=== PATIENT | female | born 1985 | race African-American/Black ===

== ENCOUNTER 2016-08-12 19:38 | Emergency (ER) | payer MEDICAID, OTHER ==
[~2016-08-12] VITALS: Ht 175.3 cm; Wt 81.0 kg
[2016-08-12 22:47] LABS: BASOPHILS % 1.1 % (0.0-2.0); EOSINOPHILS % 3.6 % (0.0-5.0); HEMATOCRIT. 36.3 % (36.0-48.0); HEMOGLOBIN. 11.8 g/dL (12.0-16.0); LYMPHOCYTES % 49.9 % (20.0-50.0); MEAN CORPUSCULAR HEMOGLOBIN 27.2 pg (28.0-32.0); MEAN CORPUSCULAR HGB CONC 32.6 g/dL (31.0-37.0); MEAN CORPUSCULAR VOLUME 83.4 fL (81.0-99.0); MEAN PLATELET VOLUME 8.4 fl (7.4-10.4); MONOCYTES % 7.9 % (2.0-8.0); NEUTROPHILS % 37.5 % (40.0-76.0); PLATELET 232 x1000/uL (130-400); RED BLOOD CELL COUNT 4.36 mill/uL (4.2-5.4); RED CELL DISTRIBUTION WIDTH 14.4 % (11.6-14.6)
[2016-08-12 22:52] LABS: CALCIUM 8.2 mg/dL (8.5-10.1); CHLORIDE 106 mEq/L (98-107); INDEX HEMOLYSI 1 (1-3); INDEX ICTERIC 1 (1-4); INDEX LIPEMIC 1 (1-3)
[2016-08-12 22:58] LABS: ANION GAP 15; CARBON DIOXIDE 25 mEq/L (21-32); UREA NITROGEN BLOOD 6 mg/dL (7-21); eGFR > 60 mL/min (>60)
[2016-08-12 23:01] LABS: B-HCG QUANTITATIVE 483 mIU/mL (<3)
[2016-08-13 00:30] VITALS: BP 103/75
[2016-08-13] MEDS ORDERED: ONDANSETRON HCL 4MG TABLET PO ONE (00:30)
== END 2016-08-13 03:13 | disposition home or self-care (01) ==
LOC: ER 19:39
DX: O03.4 Incomplete spontaneous abortion without complication (principal); Z3A.08 8 weeks gestation of pregnancy
CPT/HCPCS: 36415; 76801; 80048; 81025; 84702; 85025; 86850; 86870; 86900; 86901; 99285; Q0162

== ENCOUNTER 2018-10-05 09:18 | Inpatient (IN) | payer MEDICAID ==
[~2018-10-05] VITALS: Ht 175.3 cm; Wt 93.4 kg
[2018-10-05] MEDS ORDERED: SODIUM CHLORIDE 0.9% 1,000 ML IV ONE (09:48)
[2018-10-05] MEDS ORDERED: LEVETIRACETAM 1000MG/100ML 100 ML IV ONE (10:00)
[2018-10-05 10:13] LABS: BASOPHILS % 0.8 % (0.0-2.0); EOSINOPHILS % 0.8 % (0.0-5.0); HEMATOCRIT. 40.6 % (36.0-48.0); HEMOGLOBIN. 13.1 g/dL (12.0-16.0); LYMPHOCYTES % 18.5 % (20.0-50.0); MEAN CORPUSCULAR HEMOGLOBIN 27.3 pg (28.0-32.0); MEAN CORPUSCULAR VOLUME 84.1 fL (81.0-99.0); MEAN PLATELET VOLUME 9.3 fl (7.4-10.4); NEUTROPHILS % 73.9 % (40.0-76.0); PLATELET 224 x1000/uL (130-400); RED BLOOD CELL COUNT 4.82 mill/uL (4.2-5.4); RED CELL DISTRIBUTION WIDTH 14.9 % (11.6-14.6)
[2018-10-05 10:19] LABS: CHLORIDE 107 mEq/L (98-107)
[2018-10-05 10:24] LABS: HCG SCREEN NEGATIVE
[2018-10-05 10:25] LABS: ETHANOL BLOOD < 10 mg/dL
[2018-10-05 10:29] LABS: CREATINE KINASE 356 IU/L (26-192)
[2018-10-05 10:29] LABS: CLARITY URINE CLEAR (CLEAR); COLOR URINE YELLOW (YELLOW); KETONES URINE NEGATIVE (NEGATIVE); LEUKOCYTE ESTERASE URINE NEGATIVE (NEGATIVE); NITRITE URINE NEGATIVE (NEGATIVE); OCCULT BLOOD URINE NEGATIVE (NEGATIVE); PROTEIN URINE NEGATIVE (NEGATIVE); SPECIFIC GRAVITY URINE 1.024 (1.005-1.030); UROBILINOGEN URINE 0.2 E.U./dL (0.2-1.0)
[2018-10-05 10:45] LABS: *BENZODIAZEPINES SCREEN URINE NEGATIVE (NEGATIVE); *COCAINE SCREEN URINE NEGATIVE (NEGATIVE); METHADONE URINE SCREEN NEGATIVE (NEGATIVE); OPIATES URINE SCREEN NEGATIVE (NEGATIVE); PHENCYCLIDINE URINE SCREEN NEGATIVE (NEGATIVE)
[2018-10-05 10:46] LABS: *AMPHETAMINES SCREEN URINE NEGATIVE (NEGATIVE); *BARBITURATES SCREEN URINE NEGATIVE (NEGATIVE)
[2018-10-05 10:57] LABS: CANNABINOID URINE SCREEN PRESUMTIVE POSITIVE (NEGATIVE)
[2018-10-05] MEDS ORDERED: KETOROLAC 30MG/ML VIAL IV ONE (12:00)
[2018-10-05] MEDS ORDERED: IPRATROPIUM/ALBUTEROL 0.5-3(2.5)MG/3ML NEB INH PRN (12:45)
[2018-10-05] MEDS ORDERED: LORAZEPAM 2MG/ML CPJ IV PRN (12:45)
[2018-10-05] MEDS ORDERED: HYDROCODONE/ACETAMINOPHEN 5/325MG TABLET PO PRN (12:45)
[2018-10-05] MEDS ORDERED: DIPHENHYDRAMINE 50MG/ML VIAL IV PRN (12:45)
[2018-10-05] MEDS ORDERED: ACETAMINOPHEN 650MG/20.3ML UDC GT PRN (12:45)
[2018-10-05] MEDS ORDERED: ACETAMINOPHEN 325MG TABLET PO PRN (12:45)
[2018-10-05] MEDS ORDERED: CLONIDINE 0.1MG TABLET PO PRN (12:45)
[2018-10-05] MEDS ORDERED: ONDANSETRON HCL 4MG/2ML INJ IV PRN (12:45)
[2018-10-05] MEDS ORDERED: GUAIFENESIN 200MG/10ML SUGAR FREE UDC PO PRN (12:45)
[2018-10-05] MEDS ORDERED: MAGNESIUM/ALUMINUM HYDROXIDE/SIMETHICONE 30ML UDC PO PRN (12:45)
[2018-10-05] MEDS ORDERED: DOCUSATE SODIUM 100MG CAPSULE PO PRN (12:45)
[2018-10-05] MEDS ORDERED: ACETAMINOPHEN 650MG SUPP PR PRN (12:45)
[2018-10-05] MEDS ORDERED: NA PHOS,M-B/NA PHOS,DI-BA ENEMA 118ML PR PRN (12:45)
[2018-10-05 15:00] VITALS: BP 119/75
[2018-10-05 15:30] VITALS: BP 119/75
[2018-10-05] MEDS ORDERED: LEVE1000 PO (16:17)
[2018-10-05] MEDS ORDERED: ENOXAPARIN 40MG/0.4ML SYR SUBCUT SCH (17:00)
[2018-10-05] MEDS: SODIUM CHLORIDE 0.45% 1,000 ML IV SCH (17:01)
[2018-10-05 20:00] VITALS: BP 107/70
[2018-10-05] MEDS ORDERED: LEVETIRACETAM 500MG/5ML CUP PO SCH (21:00)
[2018-10-05] MEDS: LEVETIRACETAM 500MG/5ML CUP PO SCH (21:27)
[2018-10-05] MEDS: SODIUM CHLORIDE 0.9% INJ 3ML FLUSH IVF SCH (21:30)
[2018-10-06] MEDS: SODIUM CHLORIDE 0.45% 1,000 ML IV SCH (03:06)
[2018-10-06] MEDS: SODIUM CHLORIDE 0.9% INJ 3ML FLUSH IVF SCH (06:32)
[2018-10-06 08:00] VITALS: BP 105/72
[2018-10-06] MEDS: LEVETIRACETAM 500MG/5ML CUP PO SCH (08:28)
[2018-10-06 09:19] LABS: BASOPHILS % 1.1 % (0.0-2.0); EOSINOPHILS % 2.3 % (0.0-5.0); HEMATOCRIT. 35.6 % (36.0-48.0); HEMOGLOBIN. 11.6 g/dL (12.0-16.0); LYMPHOCYTES % 43.8 % (20.0-50.0); MEAN CORPUSCULAR HEMOGLOBIN 27.3 pg (28.0-32.0); MEAN PLATELET VOLUME 9.5 fl (7.4-10.4); MONOCYTES % 10.7 % (2.0-8.0); NEUTROPHILS % 42.1 % (40.0-76.0); PLATELET 187 x1000/uL (130-400); RED BLOOD CELL COUNT 4.23 mill/uL (4.2-5.4); RED CELL DISTRIBUTION WIDTH 14.7 % (11.6-14.6)
[2018-10-06 09:28] LABS: CHLORIDE 109 mEq/L (98-107)
[2018-10-06 09:36] LABS: LDL CHOLESTEROL 79 mg/dL (5-100)
[2018-10-06 09:37] LABS: HDL CHOLESTEROL 62 mg/dL (40-59)
== END 2018-10-06 12:57 | disposition left against medical advice (07) | DRG 53 ==
LOC: ER 09:18 → 6WST 12:14 → EDBEDREQ 12:16 → ENRESERV 13:40
PROVIDERS: ADMIT Family Medicine; ATTEND Family Medicine
DX: G40.909 Epilepsy, unspecified, not intractable, without status epilepticus (principal); M62.82 Rhabdomyolysis; F12.90 Cannabis use, unspecified, uncomplicated; Z53.21 Procedure and treatment not carried out due to patient leaving prior to being seen by health care provider; F17.200 Nicotine dependence, unspecified, uncomplicated; R32 Unspecified urinary incontinence; Z91.19 Patient's noncompliance with other medical treatment and regimen
CPT/HCPCS: 36415; 71045; 80048; 80061; 80305; 80320; 82550; 84703; 96361; 96365; 96372; 96375; 99291; J1650; J1885; J1953; J7030; G0480

== ENCOUNTER 2018-11-26 20:01 | Emergency (ER) | payer MEDICAID ==
[~2018-11-26] VITALS: Ht 177.8 cm; Wt 81.0 kg
[~2018-11-26 20:01] MED LIST: LEVE1000 PO
[2018-11-26 20:16] VITALS: BP 108/73
== END 2018-11-26 22:18 | disposition left against medical advice (07) ==
LOC: ER 20:01
DX: R56.9 Unspecified convulsions (principal); Z53.21 Procedure and treatment not carried out due to patient leaving prior to being seen by health care provider

== ENCOUNTER 2018-11-30 13:08 | Emergency (ER) | payer MEDICAID ==
[~2018-11-30] VITALS: Ht 167.6 cm; Wt 61.0 kg
[2018-11-30 13:13] VITALS: BP 111/68
== END 2018-11-30 13:30 | disposition left against medical advice (07) ==
LOC: ER 13:08
DX: Z53.21 Procedure and treatment not carried out due to patient leaving prior to being seen by health care provider (principal)

== ENCOUNTER 2018-12-10 10:30 | Emergency (ER) | payer MEDICAID ==
[~2018-12-10] VITALS: Ht 175.3 cm; Wt 78.0 kg
[2018-12-10] MEDS ORDERED: KETOROLAC 30MG/ML VIAL IV STA (11:43)
[2018-12-10] MEDS ORDERED: LEVETIRACETAM 500MG PREMIX 100 ML IV ONE (11:45)
[2018-12-10 11:59] LABS: BASOPHILS % 0.9 % (0.0-2.0); EOSINOPHILS % 2.6 % (0.0-5.0); HEMATOCRIT. 39.9 % (36.0-48.0); LYMPHOCYTES % 28.6 % (20.0-50.0); MEAN CORPUSCULAR VOLUME 85.8 fL (81.0-99.0); MEAN PLATELET VOLUME 9.3 fl (7.4-10.4); MONOCYTES % 10.5 % (2.0-8.0); NEUTROPHILS % 57.4 % (40.0-76.0); PLATELET 192 x1000/uL (130-400); RED BLOOD CELL COUNT 4.65 mill/uL (4.2-5.4); RED CELL DISTRIBUTION WIDTH 14.8 % (11.6-14.6)
[2018-12-10 12:05] LABS: CHLORIDE 106 mEq/L (98-107)
[2018-12-10 12:10] LABS: ETHANOL BLOOD < 10 mg/dL
[2018-12-10 12:40] LABS: CLARITY URINE CLEAR (CLEAR); COLOR URINE YELLOW (YELLOW); KETONES URINE NEGATIVE (NEGATIVE); LEUKOCYTE ESTERASE URINE NEGATIVE (NEGATIVE); NITRITE URINE NEGATIVE (NEGATIVE); OCCULT BLOOD URINE 1+ (NEGATIVE); PROTEIN URINE TRACE (NEGATIVE); SPECIFIC GRAVITY URINE 1.016 (1.005-1.030); UROBILINOGEN URINE 0.2 E.U./dL (0.2-1.0)
[2018-12-10 13:00] LABS: *AMPHETAMINES SCREEN URINE NEGATIVE (NEGATIVE); *BARBITURATES SCREEN URINE NEGATIVE (NEGATIVE); *BENZODIAZEPINES SCREEN URINE NEGATIVE (NEGATIVE); *COCAINE SCREEN URINE NEGATIVE (NEGATIVE); METHADONE URINE SCREEN NEGATIVE (NEGATIVE); OPIATES URINE SCREEN NEGATIVE (NEGATIVE)
[2018-12-10 13:01] LABS: PHENCYCLIDINE URINE SCREEN NEGATIVE (NEGATIVE)
[2018-12-10 13:04] LABS: CANNABINOID URINE SCREEN PRESUMTIVE POSITIVE (NEGATIVE)
[2018-12-10 13:48] VITALS: BP 100/41
== END 2018-12-10 13:51 | disposition home or self-care (01) ==
LOC: ER 10:30
DX: R56.9 Unspecified convulsions (principal); F12.10 Cannabis abuse, uncomplicated
CPT/HCPCS: 36415; 80053; 80305; 80320; 81003; 81025; 85025; 96365; 96375; 99283; J1885; J1953; Z7610; G0480

== ENCOUNTER 2019-01-15 08:31 | Emergency (ER) | payer MEDICAID ==
[~2019-01-15] VITALS: Ht 175.3 cm; Wt 84.0 kg
[2019-01-15] MEDS ORDERED: SODIUM CHLORIDE 0.9% 1,000 ML IV ONE (09:05)
[2019-01-15] MEDS ORDERED: LEVETIRACETAM 500MG PREMIX 100 ML IV ONE (09:15)
[2019-01-15 09:41] LABS: BASOPHILS % 0.2 % (0.0-2.0); EOSINOPHILS % 1.4 % (0.0-5.0); HEMATOCRIT. 41.2 % (36.0-48.0); HEMOGLOBIN. 13.7 g/dL (12.0-16.0); LYMPHOCYTES % 22.9 % (20.0-50.0); MEAN CORPUSCULAR HEMOGLOBIN 28.4 pg (28.0-32.0); MEAN CORPUSCULAR VOLUME 85.4 fL (81.0-99.0); MEAN PLATELET VOLUME 9.3 fl (7.4-10.4); MONOCYTES % 8.2 % (2.0-8.0); NEUTROPHILS % 67.3 % (40.0-76.0); PLATELET 201 x1000/uL (130-400); RED BLOOD CELL COUNT 4.82 mill/uL (4.2-5.4); RED CELL DISTRIBUTION WIDTH 13.8 % (11.6-14.6)
[2019-01-15 09:49] LABS: CHLORIDE 106 mEq/L (98-107)
[2019-01-15 11:30] VITALS: BP 133/69
== END 2019-01-15 11:30 | disposition home or self-care (01) ==
LOC: ER 08:31
DX: G40.909 Epilepsy, unspecified, not intractable, without status epilepticus (principal); L30.9 Dermatitis, unspecified; F17.210 Nicotine dependence, cigarettes, uncomplicated; Z91.14 Patient's other noncompliance with medication regimen
CPT/HCPCS: 36415; 80053; 85025; 96365; 99283; J1953; J7030

== ENCOUNTER 2019-01-21 07:35 | Emergency (ER) | payer MEDICAID ==
[~2019-01-21] VITALS: Ht 167.6 cm; Wt 73.0 kg
[2019-01-21] MEDS ORDERED: LEVETIRACETAM 1000MG/100ML 100 ML IV ONE (08:00)
[2019-01-21] MEDS ORDERED: MORPHINE SULFATE 4 MG/ML CPJ (NOT FOR IM USE) IV ONE (08:30)
[2019-01-21] MEDS ORDERED: ONDANSETRON HCL 4MG/2ML INJ IV ONE (08:30)
[2019-01-21 08:36] LABS: BASOPHILS % 0.9 % (0.0-2.0); EOSINOPHILS % 1.9 % (0.0-5.0); HEMATOCRIT. 36.3 % (36.0-48.0); HEMOGLOBIN. 12.1 g/dL (12.0-16.0); LYMPHOCYTES % 30.8 % (20.0-50.0); MEAN CORPUSCULAR HEMOGLOBIN 28.2 pg (28.0-32.0); MEAN CORPUSCULAR VOLUME 84.5 fL (81.0-99.0); MEAN PLATELET VOLUME 9.2 fl (7.4-10.4); MONOCYTES % 8.5 % (2.0-8.0); NEUTROPHILS % 57.9 % (40.0-76.0); PLATELET 210 x1000/uL (130-400); RED CELL DISTRIBUTION WIDTH 14.2 % (11.6-14.6)
[2019-01-21 08:39] LABS: CHLORIDE 106 mEq/L (98-107)
[2019-01-21 08:41] LABS: HCG SCREEN NEGATIVE
[2019-01-21 08:43] LABS: ETHANOL BLOOD < 10 mg/dL
[2019-01-21 10:33] LABS: CLARITY URINE CLEAR (CLEAR); COLOR URINE YELLOW (YELLOW); KETONES URINE NEGATIVE (NEGATIVE); LEUKOCYTE ESTERASE URINE NEGATIVE (NEGATIVE); NITRITE URINE NEGATIVE (NEGATIVE); OCCULT BLOOD URINE NEGATIVE (NEGATIVE); PROTEIN URINE NEGATIVE (NEGATIVE); SPECIFIC GRAVITY URINE 1.015 (1.005-1.030); UROBILINOGEN URINE 0.2 E.U./dL (0.2-1.0)
[2019-01-21 11:14] LABS: *AMPHETAMINES SCREEN URINE NEGATIVE (NEGATIVE); *BARBITURATES SCREEN URINE NEGATIVE (NEGATIVE); *BENZODIAZEPINES SCREEN URINE NEGATIVE (NEGATIVE); *COCAINE SCREEN URINE NEGATIVE (NEGATIVE); METHADONE URINE SCREEN NEGATIVE (NEGATIVE)
[2019-01-21 11:15] LABS: PHENCYCLIDINE URINE SCREEN NEGATIVE (NEGATIVE)
[2019-01-21 11:24] LABS: CANNABINOID URINE SCREEN PRESUMTIVE POSITIVE (NEGATIVE); OPIATES URINE SCREEN PRESUMTIVE POSITIVE (NEGATIVE)
[2019-01-21 12:00] VITALS: BP 132/78
== END 2019-01-21 12:23 | disposition home or self-care (01) ==
LOC: ER 07:35
DX: R56.9 Unspecified convulsions (principal); R51 Headache; R32 Unspecified urinary incontinence; Z91.19 Patient's noncompliance with other medical treatment and regimen; Z79.899 Other long term (current) drug therapy
CPT/HCPCS: 36415; 70450; 80053; 80305; 80320; 81003; 84703; 85025; 96365; 96375; 99284; J1953; J2270; J2405; G0480

== ENCOUNTER 2019-02-24 14:47 | Emergency (ER) | payer MEDICAID ==
[~2019-02-24] VITALS: Ht 177.8 cm; Wt 76.0 kg
[2019-02-24] MEDS ORDERED: IBUPROFEN 600MG TABLET PO STA (15:59)
[2019-02-24] MEDS ORDERED: LEVETIRACETAM 1000MG/100ML 100 ML IV ONE (16:00)
[2019-02-24] MEDS ORDERED: ACETAMINOPHEN 500MG TABLET PO ONE (16:00)
[2019-02-24 16:27] LABS: BASOPHILS % 0.3 % (0.0-2.0); EOSINOPHILS % 0.2 % (0.0-5.0); HEMATOCRIT. 38.6 % (36.0-48.0); HEMOGLOBIN. 12.8 g/dL (12.0-16.0); LYMPHOCYTES % 16.5 % (20.0-50.0); MEAN CORPUSCULAR HEMOGLOBIN 28.1 pg (28.0-32.0); MEAN CORPUSCULAR VOLUME 84.5 fL (81.0-99.0); MEAN PLATELET VOLUME 8.9 fl (7.4-10.4); MONOCYTES % 7.9 % (2.0-8.0); NEUTROPHILS % 75.1 % (40.0-76.0); PLATELET 196 x1000/uL (130-400); RED BLOOD CELL COUNT 4.57 mill/uL (4.2-5.4); RED CELL DISTRIBUTION WIDTH 14.1 % (11.6-14.6)
[2019-02-24 16:33] LABS: CHLORIDE 106 mEq/L (98-107)
[2019-02-24 17:31] VITALS: BP 118/70
== END 2019-02-24 17:55 | disposition home or self-care (01) ==
LOC: ER 14:47
DX: G40.909 Epilepsy, unspecified, not intractable, without status epilepticus (principal)
CPT/HCPCS: 36415; 80053; 85025; 96365; 99283; J1953

== ENCOUNTER 2019-04-04 07:18 | Emergency (ER) | payer MEDICAID ==
[~2019-04-04] VITALS: Ht 172.7 cm; Wt 96.0 kg
[2019-04-04] MEDS ORDERED: LEVETIRACETAM 1000MG/100ML 100 ML IV ONE (07:45)
[2019-04-04 08:57] LABS: BASOPHILS % 0.9 % (0.0-2.0); EOSINOPHILS % 0.9 % (0.0-5.0); HEMATOCRIT. 41.6 % (36.0-48.0); HEMOGLOBIN. 13.9 g/dL (12.0-16.0); LYMPHOCYTES % 22.1 % (20.0-50.0); MEAN CORPUSCULAR HEMOGLOBIN 28.2 pg (28.0-32.0); MEAN CORPUSCULAR VOLUME 84.6 fL (81.0-99.0); MEAN PLATELET VOLUME 8.7 fl (7.4-10.4); MONOCYTES % 10.5 % (2.0-8.0); NEUTROPHILS % 65.6 % (40.0-76.0); PLATELET 241 x1000/uL (130-400); RED BLOOD CELL COUNT 4.92 mill/uL (4.2-5.4); RED CELL DISTRIBUTION WIDTH 14.8 % (11.6-14.6)
[2019-04-04 09:04] LABS: CHLORIDE 99 mEq/L (98-107)
[2019-04-04 09:08] LABS: ETHANOL BLOOD < 10 mg/dL
[2019-04-04 10:07] LABS: CLARITY URINE CLEAR (CLEAR); COLOR URINE YELLOW (YELLOW); KETONES URINE NEGATIVE (NEGATIVE); LEUKOCYTE ESTERASE URINE NEGATIVE (NEGATIVE); NITRITE URINE NEGATIVE (NEGATIVE); OCCULT BLOOD URINE TRACE (NEGATIVE); PH URINE 6.5 (4.5-8.0); PROTEIN URINE TRACE (NEGATIVE)
[2019-04-04] MEDS ORDERED: METOCLOPRAMIDE HCL 10MG/2ML VIAL IV ONE (10:15)
[2019-04-04] MEDS ORDERED: KETOROLAC 30MG/ML VIAL IV ONE (10:15)
[2019-04-04 10:22] LABS: *AMPHETAMINES SCREEN URINE NEGATIVE (NEGATIVE); *BARBITURATES SCREEN URINE NEGATIVE (NEGATIVE); *BENZODIAZEPINES SCREEN URINE NEGATIVE (NEGATIVE); *COCAINE SCREEN URINE NEGATIVE (NEGATIVE); METHADONE URINE SCREEN NEGATIVE (NEGATIVE); OPIATES URINE SCREEN NEGATIVE (NEGATIVE)
[2019-04-04 10:25] LABS: CANNABINOID URINE SCREEN PRESUMTIVE POSITIVE (NEGATIVE); PHENCYCLIDINE URINE SCREEN PRESUMTIVE POSITIVE (NEGATIVE)
[2019-04-04 11:00] VITALS: BP 112/70
== END 2019-04-04 11:17 | disposition home or self-care (01) ==
LOC: ER 07:18
DX: R56.9 Unspecified convulsions (principal)
CPT/HCPCS: 36415; 80053; 80305; 80320; 81003; 85025; 96365; 96375; 99283; J1885; J1953; J2765; G0480

== ENCOUNTER 2019-04-27 10:22 | Emergency (ER) | payer MEDICAID ==
[~2019-04-27] VITALS: Ht 175.3 cm; Wt 79.0 kg
[2019-04-27] MEDS ORDERED: LEVETIRACETAM 500MG TABLET PO ONE (11:00)
[2019-04-27] MEDS ORDERED: IBUPROFEN 600MG TABLET PO ONE (11:15)
[2019-04-27] MEDS ORDERED: TRAMADOL 50MG TABLET PO ONE (11:15)
[2019-04-27] MEDS ORDERED: LEVETIRACETAM 500MG PREMIX 100 ML IV ONE (11:15)
[2019-04-27] MEDS: LEVETIRACETAM 500MG PREMIX 100 ML IV ONE ×2 (11:17→11:23)
[2019-04-27 13:18] VITALS: BP 110/63
== END 2019-04-27 13:18 | disposition home or self-care (01) ==
LOC: ER 10:45
DX: G40.909 Epilepsy, unspecified, not intractable, without status epilepticus (principal); R51 Headache; Z91.14 Patient's other noncompliance with medication regimen
CPT/HCPCS: 96365; 99283; J1953; Z7610

== ENCOUNTER 2019-09-22 11:12 | Inpatient (IN) | payer MEDICAID ==
[~2019-09-22] VITALS: Ht 175.3 cm; Wt 112.0 kg
[~2019-09-22 11:12] MED LIST changes: +PHEN100C4 PO
[2019-09-22] MEDS ORDERED: LORAZEPAM 2MG/ML CPJ IM STA (11:54)
[2019-09-22] MEDS ORDERED: LORAZEPAM 2MG/ML CPJ ONE (11:59)
[2019-09-22] MEDS ORDERED: LEVETIRACETAM 1000MG/100ML 100 ML IV ONE (12:00)
[2019-09-22 12:36] LABS: BASOPHILS % 0.8 % (0.0-2.0); EOSINOPHILS % 2.4 % (0.0-5.0); HEMATOCRIT. 47.3 % (36.0-48.0); HEMOGLOBIN. 15.3 g/dL (12.0-16.0); LYMPHOCYTES % 40.4 % (20.0-50.0); MEAN CORPUSCULAR HEMOGLOBIN 27.9 pg (28.0-32.0); MEAN CORPUSCULAR VOLUME 86.5 fL (81.0-99.0); MEAN PLATELET VOLUME 9.2 fl (7.4-10.4); MONOCYTES % 9.5 % (2.0-8.0); NEUTROPHILS % 46.9 % (40.0-76.0); PLATELET 258 x1000/uL (130-400); RED BLOOD CELL COUNT 5.47 mill/uL (4.2-5.4); RED CELL DISTRIBUTION WIDTH 14.1 % (11.6-14.6)
[2019-09-22 12:42] LABS: CHLORIDE 107 mEq/L (98-107)
[2019-09-22 12:47] LABS: ETHANOL BLOOD < 10 mg/dL
[2019-09-22] MEDS ORDERED: ACETAMINOPHEN 325MG TABLET PO ONE (13:30)
[2019-09-22] MEDS ORDERED: LEVOFLOXACIN 750MG PREMIX 150 ML IV ONE (13:30)
[2019-09-22 13:35] LABS: CLARITY URINE CLEAR (CLEAR); COLOR URINE YELLOW (YELLOW); KETONES URINE NEGATIVE (NEGATIVE); LEUKOCYTE ESTERASE URINE NEGATIVE (NEGATIVE); NITRITE URINE NEGATIVE (NEGATIVE); OCCULT BLOOD URINE 3+ (NEGATIVE); PROTEIN URINE 2+ (NEGATIVE); SPECIFIC GRAVITY URINE 1.017 (1.005-1.030); UROBILINOGEN URINE 0.2 E.U./dL (0.2-1.0)
[2019-09-22] MEDS ORDERED: LORAZEPAM 2MG/ML CPJ IV PRN (14:15)
[2019-09-22 14:20] LABS: OPIATES URINE SCREEN NEGATIVE (NEGATIVE)
[2019-09-22 14:21] LABS: *AMPHETAMINES SCREEN URINE NEGATIVE (NEGATIVE); *BARBITURATES SCREEN URINE NEGATIVE (NEGATIVE); *BENZODIAZEPINES SCREEN URINE NEGATIVE (NEGATIVE); *COCAINE SCREEN URINE NEGATIVE (NEGATIVE); PHENCYCLIDINE URINE SCREEN NEGATIVE (NEGATIVE)
[2019-09-22 14:22] LABS: METHADONE URINE SCREEN NEGATIVE (NEGATIVE)
[2019-09-22 14:25] LABS: CANNABINOID URINE SCREEN PRESUMTIVE POSITIVE (NEGATIVE)
[2019-09-22] MEDS ORDERED: HYDROCODONE/ACETAMINOPHEN 5/325MG TABLET PO PRN (17:24)
[2019-09-22] MEDS: KETOROLAC 30MG/ML VIAL IV PRN ×2 (18:00→18:17)
[2019-09-22] MEDS ORDERED: PHENYTOIN SODIUM EXTENDED 100MG CAPSULE PO SCH (21:00)
[2019-09-22] MEDS: LEVETIRACETAM 500MG TABLET PO SCH (21:00)
[2019-09-22] MEDS ORDERED: PHENYTOIN SODIUM EXTENDED 100MG CAPSULE PO NR (23:00)
[2019-09-23 01:20] VITALS: BP 100/59
[2019-09-23] MEDS: KETOROLAC 30MG/ML VIAL IV PRN (01:52)
[2019-09-23 08:00] VITALS: BP 96/58
[2019-09-23 10:10] VITALS: BP 96/58
[2019-09-23] MEDS: LEVETIRACETAM 500MG TABLET PO SCH (10:11)
[2019-09-23] MEDS ORDERED: PHENYTOIN SODIUM 1,000 MG in SODIUM CHLORIDE 0.9% 100 ML IV SCH (11:00)
[2019-09-23 20:41] LABS: HCG SCREEN POSITIVE
[2019-09-23 20:49] LABS: BASOPHILS % 0.9 % (0.0-2.0); EOSINOPHILS % 1.8 % (0.0-5.0); LYMPHOCYTES % 51.3 % (20.0-50.0); MEAN CORPUSCULAR HEMOGLOBIN 27.7 pg (28.0-32.0); MEAN CORPUSCULAR VOLUME 85.7 fL (81.0-99.0); MEAN PLATELET VOLUME 9.4 fl (7.4-10.4); MONOCYTES % 10.4 % (2.0-8.0); NEUTROPHILS % 35.6 % (40.0-76.0); PLATELET 224 x1000/uL (130-400); RED BLOOD CELL COUNT 4.67 mill/uL (4.2-5.4); RED CELL DISTRIBUTION WIDTH 13.8 % (11.6-14.6)
[2019-09-23] MEDS ORDERED: PHENYTOIN SODIUM EXTENDED 100MG CAPSULE PO SCH (21:00)
== END 2019-09-23 19:30 | disposition left against medical advice (07) | DRG 53 ==
LOC: ER 11:28 → ENRESERV 22:40 → 6WST 09-23 01:08
PROVIDERS: ADMIT Internal Medicine; ATTEND Internal Medicine
DX: G40.909 Epilepsy, unspecified, not intractable, without status epilepticus (principal); F12.90 Cannabis use, unspecified, uncomplicated; Z91.19 Patient's noncompliance with other medical treatment and regimen
CPT/HCPCS: 36415; 71045; 80053; 80185; 80305; 80320; 81003; 84703; 85025; 99285; J1165; J1885; J1953; J2060; J7050; G0480

== ENCOUNTER 2019-11-08 20:51 | Emergency (ER) | payer MEDICAID ==
[~2019-11-08] VITALS: Ht 172.7 cm; Wt 72.0 kg
[2019-11-08 20:54] VITALS: BP 115/73
[2019-11-08] MEDS ORDERED: LORAZEPAM 0.5MG TABLET PO ONE (21:15)
== END 2019-11-08 22:31 | disposition home or self-care (01) ==
LOC: ER 20:51
DX: R51 Headache (principal); F43.20 Adjustment disorder, unspecified; G40.909 Epilepsy, unspecified, not intractable, without status epilepticus; Y08.89XA Assault by other specified means, initial encounter; Y93.89 Activity, other specified; Y92.89 Other specified places as the place of occurrence of the external cause
CPT/HCPCS: 99283

== ENCOUNTER 2020-04-01 09:06 | Emergency (ER) | payer MEDICAID ==
[~2020-04-01] VITALS: Ht 170.2 cm; Wt 86.0 kg
[2020-04-01] MEDS ORDERED: ACETAMINOPHEN 325MG TABLET PO ONE (10:15)
[2020-04-01] MEDS ORDERED: METOCLOPRAMIDE HCL 10MG/2ML VIAL IV ONE (10:15)
[2020-04-01] MEDS ORDERED: SODIUM CHLORIDE 0.9% 1,000 ML IV ONE (10:15)
[2020-04-01 11:49] LABS: BASOPHILS % 0.9 % (0.0-2.0); EOSINOPHILS % 1.3 % (0.0-5.0); HEMATOCRIT. 41.4 % (36.0-48.0); LYMPHOCYTES % 40.6 % (20.0-50.0); MEAN CORPUSCULAR HEMOGLOBIN 28.2 pg (28.0-32.0); MEAN CORPUSCULAR VOLUME 83.7 fL (81.0-99.0); MEAN PLATELET VOLUME 8.8 fl (7.4-10.4); MONOCYTES % 12.4 % (2.0-8.0); NEUTROPHILS % 44.8 % (40.0-76.0); PLATELET 207 x1000/uL (130-400); RED BLOOD CELL COUNT 4.94 mill/uL (4.2-5.4)
[2020-04-01 12:00] LABS: CHLORIDE 103 mEq/L (98-107)
[2020-04-01 12:22] LABS: B-HCG QUANTITATIVE 131634 mIU/mL (<3)
[2020-04-01 13:34] VITALS: BP 153/74
== END 2020-04-01 13:40 | disposition home or self-care (01) ==
LOC: ER 09:12
DX: O26.891 Other specified pregnancy related conditions, first trimester (principal); R53.1 Weakness; R51.9 Headache, unspecified; R11.0 Nausea; O09.521 Supervision of elderly multigravida, first trimester; Z3A.08 8 weeks gestation of pregnancy; G40.909 Epilepsy, unspecified, not intractable, without status epilepticus; Z79.899 Other long term (current) drug therapy
CPT/HCPCS: 36415; 76801; 76817; 80053; 84702; 85025; 93005; 96374; 99285; J2765; J7030

== ENCOUNTER 2020-06-23 06:15 | Emergency (ER) | payer MEDICAID ==
[~2020-06-23] VITALS: Ht 172.7 cm; Wt 87.0 kg
[2020-06-23] MEDS ORDERED: LORAZEPAM 2MG/ML CPJ IM STA (06:25)
[2020-06-23] MEDS ORDERED: LEVETIRACETAM 1000MG PREMIX 100 ML IV ONE (06:30)
[2020-06-23 07:03] LABS: BASOPHILS % 0.8 % (0.0-2.0); EOSINOPHILS % 3.2 % (0.0-5.0); HEMATOCRIT. 42.4 % (36.0-48.0); HEMOGLOBIN. 13.9 g/dL (12.0-16.0); LYMPHOCYTES % 59.9 % (20.0-50.0); MEAN CORPUSCULAR HEMOGLOBIN 27.7 pg (28.0-32.0); MEAN CORPUSCULAR VOLUME 84.5 fL (81.0-99.0); MEAN PLATELET VOLUME 9.6 fl (7.4-10.4); MONOCYTES % 10.2 % (2.0-8.0); NEUTROPHILS % 25.9 % (40.0-76.0); PLATELET 255 x1000/uL (130-400); RED BLOOD CELL COUNT 5.02 mill/uL (4.2-5.4)
[2020-06-23 07:11] LABS: CHLORIDE 105 mEq/L (98-107)
[2020-06-23 07:15] LABS: ETHANOL BLOOD < 10 mg/dL
[2020-06-23 07:25] LABS: CARBAMAZEPINE < 0.5 ug/mL (4-12); PHENOBARBITAL < 2.1 ug/mL (15.0-40.0); VALPROIC ACID < 3.0 ug/mL (50-100)
[2020-06-23] MEDS ORDERED: IBUPROFEN 400MG TABLET PO ONE (10:00)
[2020-06-23 10:06] VITALS: BP 108/67
== END 2020-06-23 10:15 | disposition home or self-care (01) ==
LOC: ER 06:15
DX: G40.909 Epilepsy, unspecified, not intractable, without status epilepticus (principal)
CPT/HCPCS: 36415; 80053; 80156; 80165; 80184; 80185; 80320; 82962; 85025; 93005; 96365; 96372; 99285; J1953; J2060; G0480

== ENCOUNTER 2020-07-26 03:57 | Emergency (ER) | payer MEDICAID ==
[~2020-07-26] VITALS: Ht 175.3 cm; Wt 104.0 kg
[2020-07-26 05:29] LABS: BASOPHILS % 2.4 % (0.0-2.0); EOSINOPHILS % 3.9 % (0.0-5.0); HEMATOCRIT. 37.4 % (36.0-48.0); HEMOGLOBIN. 12.2 g/dL (12.0-16.0); LYMPHOCYTES % 59.3 % (20.0-50.0); MEAN CORPUSCULAR HEMOGLOBIN 27.8 pg (28.0-32.0); MEAN PLATELET VOLUME 9.4 fl (7.4-10.4); MONOCYTES % 14.1 % (2.0-8.0); NEUTROPHILS % 20.3 % (40.0-76.0); PLATELET 205 x1000/uL (130-400); RED CELL DISTRIBUTION WIDTH 14.4 % (11.6-14.6)
[2020-07-26 05:31] LABS: CHLORIDE 109 mEq/L (98-107)
[2020-07-26 05:35] LABS: ETHANOL BLOOD < 10 mg/dL
[2020-07-26 05:44] LABS: HCG SCREEN NEGATIVE; INR 1.1; PROTHROMBIN TIME 11.4 sec (9.6-11.0)
[2020-07-26] MEDS ORDERED: KETOROLAC 15MG/ML VIAL IV ONE (06:00)
[2020-07-26 06:42] LABS: CLARITY URINE CLEAR (CLEAR); COLOR URINE YELLOW (YELLOW); KETONES URINE NEGATIVE (NEGATIVE); LEUKOCYTE ESTERASE URINE NEGATIVE (NEGATIVE); NITRITE URINE NEGATIVE (NEGATIVE); OCCULT BLOOD URINE 3+ (NEGATIVE); PROTEIN URINE TRACE (NEGATIVE); SPECIFIC GRAVITY URINE 1.026 (1.005-1.030); UROBILINOGEN URINE 0.2 E.U./dL (0.2-1.0)
[2020-07-26 07:02] LABS: *AMPHETAMINES SCREEN URINE NEGATIVE (NEGATIVE); *BARBITURATES SCREEN URINE NEGATIVE (NEGATIVE); *BENZODIAZEPINES SCREEN URINE NEGATIVE (NEGATIVE); *COCAINE SCREEN URINE NEGATIVE (NEGATIVE)
[2020-07-26 07:03] LABS: METHADONE URINE SCREEN NEGATIVE (NEGATIVE); OPIATES URINE SCREEN NEGATIVE (NEGATIVE); PHENCYCLIDINE URINE SCREEN NEGATIVE (NEGATIVE)
[2020-07-26 07:05] LABS: CANNABINOID URINE SCREEN PRESUMTIVE POSITIVE (NEGATIVE)
[2020-07-26] MEDS ORDERED: LEVETIRACETAM 500MG PREMIX 100 ML IV ONE (08:30)
[2020-07-26] MEDS ORDERED: SODIUM CHLORIDE 0.9% 500 ML IV ONE (08:30)
[2020-07-26] MEDS ORDERED: MAGNESIUM/ALUMINUM HYDROXIDE/SIMETHICONE 30ML UDC PO ONE (10:45)
[2020-07-26] MEDS ORDERED: FAMOTIDINE 20MG TABLET PO ONE (10:45)
[2020-07-26] MEDS ORDERED: VISCOUS LIDOCAINE 2% 15 ML UDC PO ONE (10:45)
[2020-07-26] MEDS ORDERED: DIAZEPAM 5 MG TABLET PO ONE (11:30)
[2020-07-26] MEDS ORDERED: ACETAMINOPHEN 325MG TABLET PO ONE (11:30)
[2020-07-26 12:00] VITALS: BP 101/62
== END 2020-07-26 12:14 | disposition home or self-care (01) ==
LOC: ER 03:57
DX: R51.9 Headache, unspecified (principal); R10.13 Epigastric pain; Z20.822 Contact with and (suspected) exposure to COVID-19; R41.0 Disorientation, unspecified; R03.0 Elevated blood-pressure reading, without diagnosis of hypertension; R31.9 Hematuria, unspecified; R13.10 Dysphagia, unspecified; D72.819 Decreased white blood cell count, unspecified; G40.909 Epilepsy, unspecified, not intractable, without status epilepticus
CPT/HCPCS: 36415; 70450; 74176; 80053; 80185; 80305; 80320; 81003; 81025; 83690; 83880; 84484; 84703; 85025; 85610; 93005; 96365; 96375; 99285; C9803; J1885; J1953; U0003; G0480

== ENCOUNTER 2020-08-26 02:48 | Emergency (ER) | payer MEDICAID ==
[~2020-08-26] VITALS: Ht 170.2 cm; Wt 82.0 kg
[2020-08-26] MEDS ORDERED: LEVETIRACETAM 1000MG PREMIX 100 ML IV ONE (03:00)
[2020-08-26] MEDS ORDERED: SODIUM CHLORIDE 0.9% 1,000 ML IV ONE (03:15)
[2020-08-26] MEDS ORDERED: ACETAMINOPHEN 325MG TABLET PO ONE (03:15)
[2020-08-26 03:22] LABS: BASOPHILS % 1.3 % (0.0-2.0); CHLORIDE 107 mEq/L (98-107); EOSINOPHILS % 3.6 % (0.0-5.0); HEMATOCRIT. 38.9 % (36.0-48.0); HEMOGLOBIN. 12.6 g/dL (12.0-16.0); LYMPHOCYTES % 52.6 % (20.0-50.0); MEAN CORPUSCULAR HEMOGLOBIN 27.7 pg (28.0-32.0); MEAN CORPUSCULAR VOLUME 85.2 fL (81.0-99.0); MEAN PLATELET VOLUME 9.4 fl (7.4-10.4); MONOCYTES % 14.4 % (2.0-8.0); NEUTROPHILS % 28.1 % (40.0-76.0); PLATELET 195 x1000/uL (130-400); RED BLOOD CELL COUNT 4.56 mill/uL (4.2-5.4); RED CELL DISTRIBUTION WIDTH 14.2 % (11.6-14.6)
[2020-08-26 03:28] LABS: ETHANOL BLOOD < 10 mg/dL
[2020-08-26 06:53] VITALS: BP 120/70
== END 2020-08-26 07:03 | disposition home or self-care (01) ==
LOC: ER 02:48
DX: G40.909 Epilepsy, unspecified, not intractable, without status epilepticus (principal)
CPT/HCPCS: 36415; 80053; 80320; 85025; 93005; 96365; 99284; J1953; J7030; G0480

== ENCOUNTER 2020-08-26 07:13 | Emergency (ER) | payer MEDICAID ==
[~2020-08-26] VITALS: Ht 175.3 cm; Wt 90.0 kg
[2020-08-26] MEDS ORDERED: SODIUM CHLORIDE 0.9% 1,000 ML IV ONE (08:15)
[2020-08-26] MEDS ORDERED: MAGNESIUM CITRATE 300ML SOLUTION PO ONE (08:15)
[2020-08-26 09:26] LABS: BASOPHILS % 0.9 % (0.0-2.0); EOSINOPHILS % 0.5 % (0.0-5.0); HEMOGLOBIN. 12.5 g/dL (12.0-16.0); LYMPHOCYTES % 21.1 % (20.0-50.0); MEAN CORPUSCULAR HEMOGLOBIN 27.6 pg (28.0-32.0); MEAN PLATELET VOLUME 9.6 fl (7.4-10.4); MONOCYTES % 10.2 % (2.0-8.0); NEUTROPHILS % 67.3 % (40.0-76.0); PLATELET 184 x1000/uL (130-400); RED BLOOD CELL COUNT 4.53 mill/uL (4.2-5.4); RED CELL DISTRIBUTION WIDTH 13.9 % (11.6-14.6)
[2020-08-26 09:34] LABS: CHLORIDE 108 mEq/L (98-107)
[2020-08-26 12:14] VITALS: BP 105/71
[2020-08-26 13:01] LABS: CLARITY URINE CLEAR (CLEAR); COLOR URINE YELLOW (YELLOW); KETONES URINE NEGATIVE (NEGATIVE); LEUKOCYTE ESTERASE URINE NEGATIVE (NEGATIVE); NITRITE URINE NEGATIVE (NEGATIVE); OCCULT BLOOD URINE NEGATIVE (NEGATIVE); PROTEIN URINE NEGATIVE (NEGATIVE); SPECIFIC GRAVITY URINE 1.015 (1.005-1.030); UROBILINOGEN URINE 0.2 E.U./dL (0.2-1.0)
== END 2020-08-26 12:45 | disposition left against medical advice (07) ==
LOC: ER 07:13
DX: R10.2 Pelvic and perineal pain (principal); G40.909 Epilepsy, unspecified, not intractable, without status epilepticus; R51.9 Headache, unspecified
CPT/HCPCS: 36415; 74176; 80053; 81003; 83690; 85025; 93005; 96360; 96361; 99285; J7030; Z7610

== ENCOUNTER 2020-10-04 02:03 | Emergency (ER) | payer MEDICAID, OTHER ==
[~2020-10-04] VITALS: Ht 177.8 cm; Wt 88.0 kg
[2020-10-04 03:02] VITALS: BP 107/69
[2020-10-04] MEDS ORDERED: LEVETIRACETAM 500MG PREMIX 100 ML IV ONE (03:30)
== END 2020-10-04 05:00 | disposition home or self-care (01) ==
LOC: ER 02:03
DX: G40.909 Epilepsy, unspecified, not intractable, without status epilepticus (principal); R51.9 Headache, unspecified; Z91.14 Patient's other noncompliance with medication regimen
CPT/HCPCS: 82962; 93005; 96365; 99284; J1953; Z7610

== ENCOUNTER 2020-11-19 01:32 | Emergency (ER) | payer MEDICAID, OTHER ==
[~2020-11-19] VITALS: Ht 170.2 cm; Wt 82.0 kg
[2020-11-19] MEDS: LORAZEPAM 2MG/ML CPJ IV ONE (02:23)
[2020-11-19] MEDS: LEVETIRACETAM 500MG PREMIX 100 ML IV ONE (02:23)
[2020-11-19 02:42] LABS: BASOPHILS % 0.9 % (0.0-2.0); EOSINOPHILS % 1.5 % (0.0-5.0); HEMATOCRIT. 35.9 % (36.0-48.0); HEMOGLOBIN. 11.4 g/dL (12.0-16.0); LYMPHOCYTES % 46.4 % (20.0-50.0); MEAN CORPUSCULAR HEMOGLOBIN 25.7 pg (28.0-32.0); MEAN CORPUSCULAR VOLUME 80.7 fL (81.0-99.0); MEAN PLATELET VOLUME 9.4 fl (7.4-10.4); MONOCYTES % 11.4 % (2.0-8.0); NEUTROPHILS % 39.8 % (40.0-76.0); PLATELET 248 x1000/uL (130-400); RED BLOOD CELL COUNT 4.45 mill/uL (4.2-5.4); RED CELL DISTRIBUTION WIDTH 15.1 % (11.6-14.6)
[2020-11-19 02:45] LABS: CHLORIDE 107 mEq/L (98-107)
[2020-11-19] MEDS ORDERED: LEVE1000 MT (03:48)
[2020-11-19 04:00] VITALS: BP 107/72
[2020-11-19] MEDS: ACETAMINOPHEN 325MG TABLET PO ONE (04:13)
== END 2020-11-19 04:22 | disposition home or self-care (01) ==
LOC: ER 01:32
DX: R56.9 Unspecified convulsions (principal); Z91.14 Patient's other noncompliance with medication regimen
CPT/HCPCS: 36415; 80053; 85025; 93005; 96365; 96375; 99284; J1953; J2060

== ENCOUNTER 2021-01-24 06:52 | Emergency (ER) | payer MEDICAID ==
[~2021-01-24] VITALS: Ht 175.3 cm; Wt 73.0 kg
[~2021-01-24 06:52] MED LIST changes: +LEVE1000 MT
[2021-01-24] MEDS ORDERED: LEVETIRACETAM 1000MG PREMIX 100 ML IV ONE (07:15)
[2021-01-24 08:15] LABS: BASOPHILS % 0.8 % (0.0-2.0); EOSINOPHILS % 2.2 % (0.0-5.0); HEMATOCRIT. 38.3 % (36.0-48.0); HEMOGLOBIN. 11.9 g/dL (12.0-16.0); LYMPHOCYTES % 29.9 % (20.0-50.0); MONOCYTES % 11.8 % (2.0-8.0); NEUTROPHILS % 55.3 % (40.0-76.0); PLATELET 240 x1000/uL (130-400); RED BLOOD CELL COUNT 4.73 mill/uL (4.2-5.4); RED CELL DISTRIBUTION WIDTH 19.3 % (11.6-14.6)
[2021-01-24 08:20] LABS: CHLORIDE 107 mEq/L (98-107)
[2021-01-24 08:23] LABS: ETHANOL BLOOD < 10 mg/dL
[2021-01-24] MEDS ORDERED: METOCLOPRAMIDE HCL 10MG/2ML VIAL IV ONE (09:30)
[2021-01-24] MEDS ORDERED: KETOROLAC 30MG/ML VIAL IV ONE (09:30)
[2021-01-24 10:03] VITALS: BP 122/84
[2021-01-24 11:30] LABS: CLARITY URINE CLEAR (CLEAR); COLOR URINE YELLOW (YELLOW); KETONES URINE NEGATIVE (NEGATIVE); LEUKOCYTE ESTERASE URINE NEGATIVE (NEGATIVE); NITRITE URINE NEGATIVE (NEGATIVE); OCCULT BLOOD URINE NEGATIVE (NEGATIVE); PROTEIN URINE TRACE (NEGATIVE); SPECIFIC GRAVITY URINE 1.014 (1.005-1.030); UROBILINOGEN URINE 0.2 E.U./dL (0.2-1.0)
[2021-01-24 11:57] LABS: *AMPHETAMINES SCREEN URINE NEGATIVE (NEGATIVE); *BARBITURATES SCREEN URINE NEGATIVE (NEGATIVE); *BENZODIAZEPINES SCREEN URINE NEGATIVE (NEGATIVE); METHADONE URINE SCREEN NEGATIVE (NEGATIVE); OPIATES URINE SCREEN NEGATIVE (NEGATIVE); PHENCYCLIDINE URINE SCREEN NEGATIVE (NEGATIVE)
[2021-01-24 11:59] LABS: *COCAINE SCREEN URINE NEGATIVE (NEGATIVE)
[2021-01-24 12:07] LABS: CANNABINOID URINE SCREEN PRESUMTIVE POSITIVE (NEGATIVE)
== END 2021-01-24 10:30 | disposition home or self-care (01) ==
LOC: ER 06:52
DX: G40.909 Epilepsy, unspecified, not intractable, without status epilepticus (principal); R03.0 Elevated blood-pressure reading, without diagnosis of hypertension
CPT/HCPCS: 36415; 80053; 80305; 80320; 81003; 85025; 96374; 96375; 99284; J1885; J1953; J2765; G0480

== ENCOUNTER 2021-04-07 21:17 | Emergency (ER) | payer MEDICAID ==
[~2021-04-07] VITALS: Ht 175.3 cm; Wt 90.8 kg
[2021-04-07] MEDS ORDERED: ONDANSETRON HCL 4MG/2ML INJ IV STA (22:13)
[2021-04-07] MEDS ORDERED: KETOROLAC 30MG/ML VIAL IV STA (22:13)
[2021-04-07] MEDS ORDERED: SODIUM CHLORIDE 0.9% 1,000 ML IV ONE (22:15)
[2021-04-07] MEDS ORDERED: LEVETIRACETAM 500MG PREMIX 100 ML IV ONE (22:30)
[2021-04-07 23:11] LABS: HEMATOCRIT. 35.2 % (36.0-48.0); HEMOGLOBIN. 11.2 g/dL (12.0-16.0); MEAN CORPUSCULAR HEMOGLOBIN 25.3 pg (28.0-32.0); MEAN CORPUSCULAR VOLUME 79.5 fL (81.0-99.0); MEAN PLATELET VOLUME 8.6 fl (7.4-10.4); PLATELET 252 x1000/uL (130-400); RED BLOOD CELL COUNT 4.43 mill/uL (4.2-5.4); RED CELL DISTRIBUTION WIDTH 15.6 % (11.6-14.6)
[2021-04-07 23:22] LABS: CHLORIDE 108 mEq/L (98-107)
[2021-04-07 23:23] LABS: PLATELET ESTIMATE NORMAL
[2021-04-07 23:24] LABS: HCG SCREEN NEGATIVE
[2021-04-08] MEDS ORDERED: ONDANSETRON HCL 4MG/2ML INJ IV ONE (00:45)
[2021-04-08] MEDS ORDERED: IBUP-2028 MT (01:25)
[2021-04-08] MEDS ORDERED: ONDA4TAB5 MT (01:53)
[2021-04-08 02:01] VITALS: BP 110/66
== END 2021-04-08 02:00 | disposition home or self-care (01) ==
LOC: ER 21:17
DX: R56.9 Unspecified convulsions (principal)
CPT/HCPCS: 36415; 80053; 80185; 84703; 85025; 96365; 96375; 99284; J1885; J1953; J2405; J7030

== ENCOUNTER 2021-06-07 11:51 | Emergency (ER) | payer MEDICAID ==
[~2021-06-07] VITALS: Ht 170.2 cm; Wt 91.0 kg
[~2021-06-07 11:51] MED LIST changes: +IBUP-2028 MT; +ONDA4TAB5 MT
[2021-06-07] MEDS ORDERED: SODIUM CHLORIDE 0.9% 1,000 ML IV ONE (12:00)
[2021-06-07] MEDS ORDERED: LEVETIRACETAM 500MG PREMIX 100 ML IV ONE ×2 (12:15)
[2021-06-07 12:41] LABS: HEMATOCRIT. 40.8 % (36.0-48.0); HEMOGLOBIN. 13.1 g/dL (12.0-16.0); MEAN PLATELET VOLUME 9.1 fl (7.4-10.4); PLATELET 227 x1000/uL (130-400); RED BLOOD CELL COUNT 5.04 mill/uL (4.2-5.4); RED CELL DISTRIBUTION WIDTH 17.3 % (11.6-14.6)
[2021-06-07 12:46] LABS: CHLORIDE 108 mEq/L (98-107)
[2021-06-07 12:49] LABS: HCG SCREEN NEGATIVE
[2021-06-07 13:06] LABS: PLATELET ESTIMATE NORMAL
[2021-06-07] MEDS ORDERED: KETOROLAC 15MG/ML VIAL IV ONE (13:45)
[2021-06-07 15:42] VITALS: BP 102/58
== END 2021-06-07 15:43 | disposition home or self-care (01) ==
LOC: ER 12:18
DX: R56.9 Unspecified convulsions (principal)
CPT/HCPCS: 36415; 71045; 80053; 84703; 85025; 96365; 96368; 96375; 99284; C1893; J1885; J1953; J7030; Z7610

== ENCOUNTER 2021-07-19 06:27 | Emergency (ER) | payer MEDICAID ==
[~2021-07-19] VITALS: Ht 172.7 cm; Wt 68.0 kg
[2021-07-19] MEDS ORDERED: SODIUM CHLORIDE 0.9% 1,000 ML IV ONE (06:45)
[2021-07-19] MEDS ORDERED: LEVETIRACETAM 500MG/5ML CUP PO ONE (07:00)
[2021-07-19] MEDS ORDERED: ACETAMINOPHEN 325MG TABLET PO ONE (07:00)
[2021-07-19] MEDS ORDERED: LEVETIRACETAM 500MG PREMIX 100 ML IV ONE (07:15)
[2021-07-19] MEDS ORDERED: LORAZEPAM 2MG/ML CPJ IM ONE (07:15)
[2021-07-19 07:46] LABS: BASOPHILS % 0.5 % (0.0-2.0); EOSINOPHILS % 1.2 % (0.0-5.0); HEMATOCRIT. 41.2 % (36.0-48.0); HEMOGLOBIN. 12.9 g/dL (12.0-16.0); MEAN CORPUSCULAR HEMOGLOBIN 25.9 pg (28.0-32.0); MEAN CORPUSCULAR VOLUME 82.5 fL (81.0-99.0); MEAN PLATELET VOLUME 8.9 fl (7.4-10.4); MONOCYTES % 10.7 % (2.0-8.0); NEUTROPHILS % 54.6 % (40.0-76.0); PLATELET 225 x1000/uL (130-400); RED BLOOD CELL COUNT 4.99 mill/uL (4.2-5.4); RED CELL DISTRIBUTION WIDTH 16.8 % (11.6-14.6)
[2021-07-19 07:54] LABS: CHLORIDE 106 mEq/L (98-107)
[2021-07-19 07:58] LABS: ETHANOL BLOOD < 10 mg/dL
[2021-07-19 09:40] LABS: HCG SCREEN NEGATIVE
[2021-07-19] MEDS ORDERED: ONDANSETRON 4MG ODT PO ONE (10:30)
[2021-07-19] MEDS ORDERED: KEPP500 MT (11:37)
[2021-07-19 12:45] VITALS: BP 116/66
== END 2021-07-19 12:57 | disposition home or self-care (01) ==
LOC: ER 06:27
DX: R56.9 Unspecified convulsions (principal); I10 Essential (primary) hypertension; Z13.9 Encounter for screening, unspecified
CPT/HCPCS: 36415; 70450; 80053; 80320; 82962; 84703; 85025; 93005; 96365; 96372; 99285; J1953; J2060; J7030; Q0162; G0480

== ENCOUNTER 2021-08-30 04:43 | Emergency (ER) | payer MEDICAID ==
[~2021-08-30] VITALS: Ht 182.9 cm; Wt 91.0 kg
[~2021-08-30 04:43] MED LIST changes: +KEPP500 MT
[2021-08-30] MEDS ORDERED: KETOROLAC 15MG/ML VIAL IV ONE (05:30)
[2021-08-30] MEDS ORDERED: SODIUM CHLORIDE 0.9% 1,000 ML IV ONE (05:30)
[2021-08-30] MEDS ORDERED: LEVETIRACETAM 1000MG PREMIX 100 ML IV ONE (05:30)
[2021-08-30 05:54] LABS: BASOPHILS % 1.1 % (0.0-2.0); EOSINOPHILS % 2.7 % (0.0-5.0); HEMATOCRIT. 35.9 % (36.0-48.0); HEMOGLOBIN. 11.8 g/dL (12.0-16.0); LYMPHOCYTES % 50.8 % (20.0-50.0); MEAN CORPUSCULAR VOLUME 82.5 fL (81.0-99.0); MEAN PLATELET VOLUME 9.3 fl (7.4-10.4); MONOCYTES % 12.6 % (2.0-8.0); NEUTROPHILS % 32.8 % (40.0-76.0); PLATELET 183 x1000/uL (130-400); RED BLOOD CELL COUNT 4.35 mill/uL (4.2-5.4); RED CELL DISTRIBUTION WIDTH 15.3 % (11.6-14.6)
[2021-08-30 06:12] LABS: CHLORIDE 110 mEq/L (98-107)
[2021-08-30 06:16] LABS: ETHANOL BLOOD < 10 mg/dL
[2021-08-30 06:23] LABS: B-HCG QUANTITATIVE < 1 mIU/mL (<3)
[2021-08-30 06:34] LABS: CLARITY URINE CLEAR (CLEAR); COLOR URINE YELLOW (YELLOW); KETONES URINE NEGATIVE (NEGATIVE); LEUKOCYTE ESTERASE URINE NEGATIVE (NEGATIVE); NITRITE URINE NEGATIVE (NEGATIVE); OCCULT BLOOD URINE TRACE (NEGATIVE); PH URINE 5.5 (4.5-8.0); PROTEIN URINE 1+ (NEGATIVE); SPECIFIC GRAVITY URINE 1.019 (1.005-1.030)
[2021-08-30 06:51] LABS: *AMPHETAMINES SCREEN URINE NEGATIVE (NEGATIVE); *COCAINE SCREEN URINE NEGATIVE (NEGATIVE); METHADONE URINE SCREEN NEGATIVE (NEGATIVE)
[2021-08-30 06:52] LABS: *BARBITURATES SCREEN URINE NEGATIVE (NEGATIVE); OPIATES URINE SCREEN NEGATIVE (NEGATIVE); PHENCYCLIDINE URINE SCREEN NEGATIVE (NEGATIVE)
[2021-08-30 07:02] LABS: *BENZODIAZEPINES SCREEN URINE PRESUMTIVE POSITIVE (NEGATIVE); CANNABINOID URINE SCREEN PRESUMTIVE POSITIVE (NEGATIVE)
[2021-08-30] MEDS ORDERED: KEPP500 MT (07:29)
[2021-08-30 07:55] VITALS: BP 98/64
== END 2021-08-30 07:59 | disposition home or self-care (01) ==
LOC: ER 04:43
DX: R56.9 Unspecified convulsions (principal)
CPT/HCPCS: 36415; 71045; 80053; 80185; 80305; 80320; 81003; 84702; 85025; 93005; 96365; 96375; 99285; J1885; J1953; J7030; G0480

== ENCOUNTER 2021-09-24 07:03 | Emergency (ER) | payer MEDICAID ==
[~2021-09-24] VITALS: Ht 175.3 cm; Wt 87.0 kg
[2021-09-24] MEDS ORDERED: MORPHINE SULFATE 4 MG/ML CPJ (NOT FOR IM USE) IV STA (07:24)
[2021-09-24] MEDS ORDERED: ONDANSETRON HCL 4MG/2ML INJ IV STA (07:24)
[2021-09-24] MEDS ORDERED: LEVETIRACETAM 1000MG PREMIX 100 ML IV ONE (07:30)
[2021-09-24 08:19] VITALS: BP 138/84
[2021-09-24 08:25] LABS: HEMATOCRIT. 36.4 % (36.0-48.0); MEAN CORPUSCULAR HEMOGLOBIN 27.2 pg (28.0-32.0); MEAN CORPUSCULAR VOLUME 82.8 fL (81.0-99.0); MEAN PLATELET VOLUME 9.6 fl (7.4-10.4); PLATELET 249 x1000/uL (130-400); RED CELL DISTRIBUTION WIDTH 15.6 % (11.6-14.6)
[2021-09-24 08:31] LABS: CHLORIDE 108 mEq/L (98-107)
[2021-09-24 08:39] LABS: *AMPHETAMINES SCREEN URINE NEGATIVE (NEGATIVE); *BARBITURATES SCREEN URINE NEGATIVE (NEGATIVE)
[2021-09-24 08:40] LABS: *BENZODIAZEPINES SCREEN URINE NEGATIVE (NEGATIVE); *COCAINE SCREEN URINE NEGATIVE (NEGATIVE); METHADONE URINE SCREEN NEGATIVE (NEGATIVE); PHENCYCLIDINE URINE SCREEN NEGATIVE (NEGATIVE)
[2021-09-24 08:44] LABS: HCG SCREEN NEGATIVE
[2021-09-24 08:48] LABS: CANNABINOID URINE SCREEN PRESUMTIVE POSITIVE (NEGATIVE); OPIATES URINE SCREEN PRESUMTIVE POSITIVE (NEGATIVE)
[2021-09-24 10:11] LABS: PLATELET ESTIMATE NORMAL
[2021-09-24 10:54] LABS: CLARITY URINE CLEAR (CLEAR); COLOR URINE YELLOW (YELLOW); KETONES URINE NEGATIVE (NEGATIVE); LEUKOCYTE ESTERASE URINE NEGATIVE (NEGATIVE); NITRITE URINE NEGATIVE (NEGATIVE); OCCULT BLOOD URINE NEGATIVE (NEGATIVE); PH URINE 6.5 (4.5-8.0); PROTEIN URINE TRACE (NEGATIVE); SPECIFIC GRAVITY URINE 1.024 (1.005-1.030); UROBILINOGEN URINE 0.2 E.U./dL (0.2-1.0)
[2021-09-24] MEDS ORDERED: OMEP40CA20 MT (11:12)
== END 2021-09-24 12:28 | disposition home or self-care (01) ==
LOC: ER 07:39
DX: K29.00 Acute gastritis without bleeding (principal); G40.909 Epilepsy, unspecified, not intractable, without status epilepticus; R03.0 Elevated blood-pressure reading, without diagnosis of hypertension
CPT/HCPCS: 36415; 80053; 80305; 80320; 81003; 83690; 84703; 85025; 93005; 96365; 96366; 96375; 99285; J1953; J2270; J2405; G0480

== ENCOUNTER 2021-12-24 04:03 | Emergency (ER) | payer MEDICAID ==
[~2021-12-24] VITALS: Ht 177.8 cm; Wt 90.0 kg
[~2021-12-24 04:03] MED LIST changes: +OMEP40CA20 MT
[2021-12-24] MEDS ORDERED: ACETAMINOPHEN 325MG TABLET PO STA (05:19)
[2021-12-24] MEDS ORDERED: LEVETIRACETAM 1000MG PREMIX 100 ML IV ONE (05:30)
[2021-12-24] MEDS ORDERED: SODIUM CHLORIDE 0.9% 1,000 ML IV ONE (05:30)
[2021-12-24] MEDS ORDERED: HALOPERIDOL LACTATE 5MG/ML VIAL IM ONE (06:15)
[2021-12-24] MEDS ORDERED: MIDAZOLAM HCL 2 MG/2 ML VIAL IV ONE ×3 (07:15→13:00)
[2021-12-24 09:17] LABS: HEMATOCRIT. 41.5 % (36.0-48.0); HEMOGLOBIN. 13.4 g/dL (12.0-16.0); MEAN CORPUSCULAR VOLUME 83.4 fL (81.0-99.0); MEAN PLATELET VOLUME 9.1 fl (7.4-10.4); PLATELET 182 x1000/uL (130-400); RED BLOOD CELL COUNT 4.98 mill/uL (4.2-5.4); RED CELL DISTRIBUTION WIDTH 15.4 % (11.6-14.6)
[2021-12-24 09:27] LABS: CHLORIDE 106 mEq/L (98-107)
[2021-12-24 09:36] LABS: ETHANOL BLOOD < 10 mg/dL
[2021-12-24 10:13] LABS: PLATELET ESTIMATE NORMAL
[2021-12-24 14:33] VITALS: BP 120/78
== END 2021-12-24 18:55 | disposition home or self-care (01) ==
LOC: ER 04:03
DX: G40.909 Epilepsy, unspecified, not intractable, without status epilepticus (principal); G93.49 Other encephalopathy
CPT/HCPCS: 36415; 70450; 80053; 80320; 82962; 85025; 96365; 96366; 96372; 96375; 96376; 99285; J1630; J1953; J2250; J7030; Z7610; A4315; G0480

== ENCOUNTER 2022-03-24 23:40 | Emergency (ER) | payer MEDICAID ==
[~2022-03-24] VITALS: Ht 177.8 cm; Wt 82.0 kg
[2022-03-24] MEDS ORDERED: MIDAZOLAM HCL 2 MG/2 ML VIAL IM ONE (23:45)
[2022-03-24] MEDS ORDERED: LEVETIRACETAM 1000MG PREMIX 100 ML IV ONE (23:45)
[2022-03-25 01:27] LABS: HEMATOCRIT. 38.9 % (36.0-48.0); HEMOGLOBIN. 12.5 g/dL (12.0-16.0); MEAN CORPUSCULAR HEMOGLOBIN 27.1 pg (28.0-32.0); MEAN CORPUSCULAR VOLUME 84.4 fL (81.0-99.0); MEAN PLATELET VOLUME 8.7 fl (7.4-10.4); PLATELET 208 x1000/uL (130-400); RED BLOOD CELL COUNT 4.61 mill/uL (4.2-5.4); RED CELL DISTRIBUTION WIDTH 15.3 % (11.6-14.6)
[2022-03-25 01:33] LABS: CHLORIDE 107 mEq/L (98-107)
[2022-03-25 01:39] LABS: HCG SCREEN NEGATIVE
[2022-03-25 01:41] LABS: ETHANOL BLOOD < 10 mg/dL
[2022-03-25 01:50] LABS: PLATELET ESTIMATE NORMAL
[2022-03-25] MEDS ORDERED: ACETAMINOPHEN 325MG TABLET PO ONE (04:00)
[2022-03-25] MEDS ORDERED: KETOROLAC 30MG/ML VIAL IV ONE (04:00)
[2022-03-25 04:30] VITALS: BP 128/78
[2022-03-25 07:30] LABS: *AMPHETAMINES SCREEN URINE NEGATIVE (NEGATIVE); *BARBITURATES SCREEN URINE NEGATIVE (NEGATIVE); *COCAINE SCREEN URINE NEGATIVE (NEGATIVE); METHADONE URINE SCREEN NEGATIVE (NEGATIVE); OPIATES URINE SCREEN NEGATIVE (NEGATIVE); PHENCYCLIDINE URINE SCREEN NEGATIVE (NEGATIVE)
[2022-03-25 07:32] LABS: CLARITY URINE CLEAR (CLEAR); COLOR URINE YELLOW (YELLOW); PROTEIN URINE NEGATIVE (NEGATIVE)
[2022-03-25 07:33] LABS: KETONES URINE NEGATIVE (NEGATIVE); LEUKOCYTE ESTERASE URINE NEGATIVE (NEGATIVE); NITRITE URINE NEGATIVE (NEGATIVE); OCCULT BLOOD URINE 1+ (NEGATIVE); UROBILINOGEN URINE 0.2 E.U./dL (0.2-1.0)
[2022-03-25 07:47] LABS: *BENZODIAZEPINES SCREEN URINE PRESUMTIVE POSITIVE (NEGATIVE); CANNABINOID URINE SCREEN PRESUMTIVE POSITIVE (NEGATIVE)
== END 2022-03-25 06:48 | disposition home or self-care (01) ==
LOC: ER 23:40
DX: G40.909 Epilepsy, unspecified, not intractable, without status epilepticus (principal)
CPT/HCPCS: 36415; 80053; 80305; 80320; 81003; 81025; 84703; 85025; 96365; 96366; 96372; 96375; 99284; J1885; J1953; J2250; G0480

== ENCOUNTER 2022-06-06 11:10 | Emergency (ER) | payer MEDICAID ==
[~2022-06-06] VITALS: Ht 180.3 cm; Wt 82.0 kg
[2022-06-06 12:18] LABS: BASOPHILS % 0.5 % (0.0-2.0); CHLORIDE 107 mEq/L (98-107); EOSINOPHILS % 0.6 % (0.0-5.0); MEAN CORPUSCULAR HEMOGLOBIN 27.4 pg (28.0-32.0); MEAN CORPUSCULAR VOLUME 84.1 fL (81.0-99.0); MONOCYTES % 7.6 % (2.0-8.0); NEUTROPHILS % 73.3 % (40.0-76.0); RED BLOOD CELL COUNT 5.11 mill/uL (4.2-5.4); RED CELL DISTRIBUTION WIDTH 15.3 % (11.6-14.6)
[2022-06-06 12:25] LABS: ETHANOL BLOOD < 10 mg/dL
[2022-06-06] MEDS ORDERED: ONDANSETRON HCL 4MG/2ML INJ IV ONE (12:30)
[2022-06-06] MEDS ORDERED: LEVETIRACETAM 500MG PREMIX 100 ML IV ONE (12:30)
[2022-06-06] MEDS ORDERED: ACETAMINOPHEN 325MG TABLET PO ONE (12:30)
[2022-06-06] MEDS ORDERED: LEVETIRACETAM 500MG TABLET PO ONE (14:15)
[2022-06-06 16:01] VITALS: BP 117/69
== END 2022-06-06 17:30 | disposition home or self-care (01) ==
LOC: ER 11:10
DX: R56.9 Unspecified convulsions (principal); Z91.14 Patient's other noncompliance with medication regimen
CPT/HCPCS: 36415; 80053; 80320; 85025; 99283; J1953; J2405; G0480

== ENCOUNTER 2022-09-04 13:59 | Emergency (ER) | payer MEDICAID ==
[~2022-09-04] VITALS: Ht 170.2 cm; Wt 68.0 kg
[2022-09-04 14:02] VITALS: BP 107/73
[2022-09-04] MEDS ORDERED: LEVETIRACETAM 500MG TABLET PO ONE (15:45)
[2022-09-04] MEDS ORDERED: ACETAMINOPHEN 325MG TABLET PO ONE (15:45)
[2022-09-04] MEDS ORDERED: PHENYTOIN SODIUM EXTENDED 100MG CAPSULE PO ONE (15:45)
== END 2022-09-04 18:04 | disposition home or self-care (01) ==
LOC: ER 13:59
DX: R56.9 Unspecified convulsions (principal); Z79.899 Other long term (current) drug therapy
CPT/HCPCS: 99284

== ENCOUNTER 2022-10-13 01:28 | Emergency (ER) | payer MEDICAID ==
[~2022-10-13] VITALS: Ht 172.7 cm; Wt 82.0 kg
[2022-10-13 03:16] VITALS: BP 149/89
[2022-10-13] MEDS ORDERED: LEVETIRACETAM 1000MG PREMIX 100 ML IV ONE (03:30)
[2022-10-13] MEDS ORDERED: ACETAMINOPHEN 325MG TABLET PO ONE (03:45)
[2022-10-13 04:29] LABS: BASOPHILS % 0.2 % (0.0-2.0); EOSINOPHILS % 0.4 % (0.0-5.0); HEMOGLOBIN. 11.9 g/dL (12.0-16.0); LYMPHOCYTES % 10.7 % (20.0-50.0); MEAN CORPUSCULAR HEMOGLOBIN 26.7 pg (28.0-32.0); MEAN CORPUSCULAR VOLUME 83.2 fL (81.0-99.0); MEAN PLATELET VOLUME 8.9 fl (7.4-10.4); MONOCYTES % 8.2 % (2.0-8.0); NEUTROPHILS % 80.5 % (40.0-76.0); PLATELET 232 x1000/uL (130-400); RED BLOOD CELL COUNT 4.45 mill/uL (4.2-5.4); RED CELL DISTRIBUTION WIDTH 16.2 % (11.6-14.6)
[2022-10-13 04:49] LABS: CHLORIDE 110 mEq/L (98-107)
== END 2022-10-13 08:28 | disposition home or self-care (01) ==
LOC: ER 01:28
DX: R56.9 Unspecified convulsions (principal)
CPT/HCPCS: 36415; 80053; 85025; 96365; 99284; J1953; Z7610

== ENCOUNTER 2022-11-19 09:03 | Emergency (ER) | payer MEDICAID ==
[~2022-11-19] VITALS: Ht 175.3 cm; Wt 81.0 kg
[2022-11-19] MEDS ORDERED: SODIUM CHLORIDE 0.9% 1,000 ML IV ONE (09:45)
[2022-11-19] MEDS ORDERED: LORAZEPAM 2MG/ML CPJ IV ONE (09:45)
[2022-11-19] MEDS ORDERED: LEVETIRACETAM 500MG PREMIX 100 ML IV ONE (09:45)
[2022-11-19] MEDS ORDERED: LEVETIRACETAM 500MG PREMIX 100 ML IV NR (10:00)
[2022-11-19 10:37] LABS: BASOPHILS % 0.8 % (0.0-2.0); EOSINOPHILS % 1.3 % (0.0-5.0); HEMOGLOBIN. 13.4 g/dL (12.0-16.0); LYMPHOCYTES % 25.5 % (20.0-50.0); MEAN CORPUSCULAR HEMOGLOBIN 27.2 pg (28.0-32.0); MEAN CORPUSCULAR VOLUME 85.3 fL (81.0-99.0); MEAN PLATELET VOLUME 8.8 fl (7.4-10.4); NEUTROPHILS % 63.4 % (40.0-76.0); PLATELET 227 x1000/uL (130-400); RED BLOOD CELL COUNT 4.92 mill/uL (4.2-5.4); RED CELL DISTRIBUTION WIDTH 15.6 % (11.6-14.6)
[2022-11-19 10:45] LABS: CHLORIDE 111 mEq/L (98-107)
[2022-11-19 10:54] LABS: ETHANOL BLOOD < 10 mg/dL (-10)
[2022-11-19] MEDS ORDERED: ACETAMINOPHEN 325MG TABLET PO ONE (11:15)
[2022-11-19 12:12] LABS: HCG SCREEN NEGATIVE
[2022-11-19 12:58] VITALS: BP 99/70
== END 2022-11-19 17:20 | disposition home or self-care (01) ==
LOC: ER 09:03
DX: R56.9 Unspecified convulsions (principal); Z79.899 Other long term (current) drug therapy
CPT/HCPCS: 36415; 80053; 80320; 82140; 83735; 84703; 85025; 96365; 96366; 99284; J1953; J7030; G0480

== ENCOUNTER 2023-01-26 09:54 | Emergency (ER) | payer MEDICAID ==
[~2023-01-26] VITALS: Ht 177.8 cm; Wt 82.0 kg
[2023-01-26 09:56] VITALS: O2SAT 95
[2023-01-26] MEDS ORDERED: LEVETIRACETAM 500MG PREMIX 100 ML IV ONE (10:15)
[2023-01-26 10:30] VITALS: TEMP 98.3
[2023-01-26 11:17] LABS: BASOPHILS % 0.2 % (0.0-2.0); HEMATOCRIT. 43.4 % (36.0-48.0); HEMOGLOBIN. 14.2 g/dL (12.0-16.0); LYMPHOCYTES % 7.7 % (20.0-50.0); MEAN CORPUSCULAR HEMOGLOBIN 27.3 pg (28.0-32.0); MEAN CORPUSCULAR HGB CONC 32.7 g/dL (31.0-37.0); MEAN CORPUSCULAR VOLUME 83.5 fL (81.0-99.0); MEAN PLATELET VOLUME 10.2 fl (7.4-10.4); NEUTROPHILS % 87.1 % (40.0-76.0); PLATELET 241 x1000/uL (130-400); RED CELL DISTRIBUTION WIDTH 15.5 % (11.6-14.6); WHITE BLOOD COUNT 10.5 x1000/uL (4.5-11.0)
[2023-01-26 12:21] LABS: HCG SCREEN NEGATIVE
[2023-01-26 12:40] LABS: CHLORIDE 106 mEq/L (98-107); INDEX HEMOLYSI 2 (1-3); INDEX ICTERIC 1 (1-4); INDEX LIPEMIC 1 (1-3); POTASSIUM 3.7 mEq/L (3.5-5.1); SODIUM 134 mEq/L (136-145)
[2023-01-26 12:46] LABS: ALANINE AMINOTRANSFERASE 30 IU/L (13-61); ALBUMIN 3.6 g/dL (3.4-5.0); ASPARTATE AMINOTRANSFERASE 27 IU/L (15-37); BILIRUBIN TOTAL 0.3 mg/dL (0.1-1.0); CALCIUM 8.8 mg/dL (8.5-10.1); CARBON DIOXIDE 24 mEq/L (21-32); CREATININE 0.8 mg/dL (0.6-1.3); ETHANOL BLOOD < 10 mg/dL (-10); GLUCOSE 97 mg/dL (70-105); PROTEIN TOTAL 7.8 g/dL (6.0-8.3); UREA NITROGEN BLOOD 10 mg/dL (7-21)
[2023-01-26] MEDS ORDERED: ACETAMINOPHEN WITH CODEINE 300/30MG TABLET PO ONE (13:15)
[2023-01-26] MEDS ORDERED: KEPP500 MT (13:27)
[2023-01-26 13:57] VITALS: BP 119/87; PULSE 92; RESP 17
== END 2023-01-26 14:55 | disposition home or self-care (01) ==
LOC: ER 09:54
DX: R56.9 Unspecified convulsions (principal)
CPT/HCPCS: 80053; 80320; 84703; 85025; 36415; 93005; 96365; 96366; 99291; J1953; Z7610 ×2; G0480

== ENCOUNTER 2023-07-28 01:24 | Emergency (ER) | payer MEDICAID ==
[~2023-07-28] VITALS: Ht 177.8 cm; Wt 90.0 kg
[2023-07-28 01:26] VITALS: O2SAT 98
[2023-07-28] MEDS: ONDANSETRON HCL 4MG/2ML INJ IV STA (01:56)
[2023-07-28] MEDS: LEVETIRACETAM 1000MG PREMIX 100 ML IV ONE (02:57)
[2023-07-28] MEDS: SODIUM CHLORIDE 0.9% 1,000 ML IV ONE (02:57)
[2023-07-28] MEDS: DIAZEPAM 5 MG/ML 2ML CPJ IV ONE (02:57)
[2023-07-28 05:25] VITALS: BP 112/69; PULSE 91; RESP 14; TEMP 98.9
== END 2023-07-28 05:41 | disposition home or self-care (01) ==
LOC: ER 01:24
DX: R56.9 Unspecified convulsions (principal)
CPT/HCPCS: 99285; 96365; 70450; 71045; 96375; 93005; J1953; J3360; J2405; J7030

== ENCOUNTER 2023-09-02 02:37 | Emergency (ER) | payer MEDICAID ==
[~2023-09-02] VITALS: Ht 182.9 cm; Wt 91.0 kg
[2023-09-02 02:40] VITALS: O2SAT 98
[2023-09-02 03:06] LABS: BASOPHILS % 0.9 % (0.0-2.0); EOSINOPHILS % 2.8 % (0.0-5.0); HEMATOCRIT. 41.6 % (36.0-48.0); HEMOGLOBIN. 13.5 g/dL (12.0-16.0); LYMPHOCYTES % 56.3 % (20.0-50.0); MEAN CORPUSCULAR HEMOGLOBIN 27.6 pg (28.0-32.0); MEAN CORPUSCULAR HGB CONC 32.4 g/dL (31.0-37.0); MONOCYTES % 8.9 % (2.0-8.0); NEUTROPHILS % 31.1 % (40.0-76.0); PLATELET 218 x1000/uL (130-400); RED CELL DISTRIBUTION WIDTH 15.7 % (11.6-14.6); WHITE BLOOD COUNT 3.6 x1000/uL (4.5-11.0)
[2023-09-02 03:15] LABS: HCG SCREEN NEGATIVE
[2023-09-02 03:18] LABS: ALANINE AMINOTRANSFERASE 15 IU/L (10-49); ASPARTATE AMINOTRANSFERASE 28 IU/L (<34); BILIRUBIN TOTAL 0.3 mg/dL (0.1-1.0); CALCIUM 8.4 mg/dL (8.7-10.4); CARBON DIOXIDE 21 mEq/L (21-32); CHLORIDE 107 mEq/L (98-107); CREATININE 0.8 mg/dL (0.6-1.0); ETHANOL BLOOD 19 mg/dL (<10); GLUCOSE 69 mg/dL (70-105); POTASSIUM 3.9 mEq/L (3.5-5.1); PROTEIN TOTAL 6.8 g/dL (6.0-8.3); SODIUM 138 mEq/L (136-145); UREA NITROGEN BLOOD 10 mg/dL (9-23)
[2023-09-02] MEDS ORDERED: ONDA4TAB50 MT (04:56)
[2023-09-02 05:14] VITALS: TEMP 98.7
[2023-09-02] MEDS: ACETAMINOPHEN 325MG TABLET PO ONE (05:14)
[2023-09-02] MEDS: ONDANSETRON HCL 4MG/2ML INJ IV ONE (05:14)
[2023-09-02] MEDS: LEVETIRACETAM 500MG/5ML CUP PO ONE (05:22)
[2023-09-02 06:25] VITALS: BP 108/69; PULSE 83; RESP 18
[2023-09-02] MEDS ORDERED: KEPP500 MT (10:35)
== END 2023-09-02 06:27 | disposition home or self-care (01) ==
LOC: ER 02:37
DX: G40.909 Epilepsy, unspecified, not intractable, without status epilepticus (principal); F10.129 Alcohol abuse with intoxication, unspecified; F19.90 Other psychoactive substance use, unspecified, uncomplicated; Y90.9 Presence of alcohol in blood, level not specified
CPT/HCPCS: 80053; 80320; 82962; 84703; 85025; 36415; 99283; J2405; G0480

== ENCOUNTER 2023-09-02 07:41 | Emergency (ER) | payer MEDICAID ==
[~2023-09-02] VITALS: Ht 177.8 cm; Wt 90.0 kg
[~2023-09-02 07:41] MED LIST changes: +ONDA4TAB50 MT
[2023-09-02 07:43] VITALS: O2SAT 99
[2023-09-02] MEDS: LEVETIRACETAM 1000MG PREMIX 100 ML IV ONE (08:00)
[2023-09-02] MEDS: SODIUM CHLORIDE 0.9% 1,000 ML IV ONE (08:00)
[2023-09-02] MEDS: LEVETIRACETAM 500MG PREMIX 100 ML IV ONE (08:00)
[2023-09-02] MEDS ORDERED: KEPP500 MT (10:35)
[2023-09-02] MEDS: ACETAMINOPHEN 325MG TABLET PO ONE (11:08)
[2023-09-02 12:06] VITALS: BP 98/62; PULSE 74; RESP 18; TEMP 98
== END 2023-09-02 12:12 | disposition home or self-care (01) ==
LOC: ER 07:57
DX: G40.909 Epilepsy, unspecified, not intractable, without status epilepticus (principal)
CPT/HCPCS: 96365; 99285; J1953; J7030; Z7610 ×2

== ENCOUNTER 2023-10-09 05:05 | Inpatient (IN) | payer SELFPAY ==
[~2023-10-09] VITALS: Ht 182.9 cm; Wt 72.6 kg
[2023-10-09] MEDS: PHENYTOIN SODIUM 1,000 MG in SODIUM CHLORIDE 0.9% 100 ML IV ONE (06:00)
[2023-10-09] MEDS: SODIUM CHLORIDE 0.9% 1,000 ML IV ONE (06:00)
[2023-10-09] MEDS: LORAZEPAM 2MG/ML INJ IV ONE ×2 (06:38→06:52)
[2023-10-09] MEDS: LEVETIRACETAM 500MG PREMIX 100 ML IV ONE ×2 (06:58)
[2023-10-09] MEDS ORDERED: LEVETIRACETAM 500 MG in SODIUM CHLORIDE 0.9% 100 ML IV SCH (07:30)
[2023-10-09] MEDS ORDERED: ACETAMINOPHEN 325MG TABLET PO PRN (07:30)
[2023-10-09] MEDS ORDERED: IPRATROPIUM/ALBUTEROL 0.5-3(2.5)MG/3ML NEB HHN PRN (07:30)
[2023-10-09] MEDS: PHENYTOIN SODIUM 500 MG in SODIUM CHLORIDE 0.9% 50 ML IV ONE (07:30)
[2023-10-09] MEDS ORDERED: ONDANSETRON HCL 4MG/2ML INJ IV PRN (07:30)
[2023-10-09] MEDS ORDERED: LORAZEPAM 2MG/ML INJ IV PRN (07:30)
[2023-10-09 07:33] LABS: BASOPHILS % 0.4 % (0.0-2.0); EOSINOPHILS % 0.7 % (0.0-5.0); HEMATOCRIT. 38.5 % (36.0-48.0); HEMOGLOBIN. 12.3 g/dL (12.0-16.0); LYMPHOCYTES % 14.8 % (20.0-50.0); MEAN CORPUSCULAR HEMOGLOBIN 27.3 pg (28.0-32.0); MEAN CORPUSCULAR VOLUME 85.5 fL (81.0-99.0); MONOCYTES % 6.8 % (2.0-8.0); NEUTROPHILS % 77.3 % (40.0-76.0); RED BLOOD CELL COUNT 4.51 mill/uL (4.2-5.4); RED CELL DISTRIBUTION WIDTH 14.9 % (11.6-14.6); WHITE BLOOD COUNT 11.8 x1000/uL (4.5-11.0)
[2023-10-09 07:45] LABS: DIFFERENTIAL COMMENT 1
[2023-10-09 07:46] LABS: CHLORIDE 110 mEq/L (98-107); POTASSIUM 3.8 mEq/L (3.5-5.1); SODIUM 136 mEq/L (136-145)
[2023-10-09 07:48] LABS: CALCIUM 8.8 mg/dL (8.7-10.4); CARBON DIOXIDE 15 mEq/L (21-32)
[2023-10-09 07:53] LABS: CREATININE 0.8 mg/dL (0.6-1.0); GLUCOSE 108 mg/dL (70-105)
[2023-10-09 07:54] LABS: UREA NITROGEN BLOOD 10 mg/dL (9-23)
[2023-10-09 07:55] LABS: ACETAMINOPHEN < 2 ug/mL (10-30); ALANINE AMINOTRANSFERASE 16 IU/L (10-49); ALBUMIN 3.8 g/dL (3.2-4.8); ASPARTATE AMINOTRANSFERASE 24 IU/L (<34); ETHANOL BLOOD < 10 mg/dL (<10)
[2023-10-09 07:56] LABS: BILIRUBIN TOTAL 0.3 mg/dL (0.1-1.0); PROTEIN TOTAL 6.5 g/dL (6.0-8.3)
[2023-10-09] MEDS ORDERED: MAGNESIUM 2 G PREMIX 50 ML IV NR (08:00)
[2023-10-09 08:55] LABS: HCG SCREEN NEGATIVE
[2023-10-09] MEDS: FOLIC ACID 1 MG, THIAMINE HCL 100 MG, MVI, ADULT NO.1 10 ML in DEXTROSE 5% WATER 1,000 ML IV ONE (09:00)
[2023-10-09 09:51] LABS: IRON 58 ug/dL (50-170)
[2023-10-09 09:52] LABS: TRIGLYCERIDE 68 mg/dL (0-150)
[2023-10-09 09:53] LABS: LDL CHOLESTEROL 106 mg/dL (5-100)
[2023-10-09 09:54] LABS: CHOLESTEROL 182 mg/dL (<200); CREATINE KINASE 261 IU/L (34-145); HDL CHOLESTEROL 65 mg/dL (>65); PHOSPHORUS 2.4 mg/dL (2.5-4.9); TOTAL IRON BINDING CAPACITY 182 ug/dl (250-425)
[2023-10-09 09:56] LABS: T4 FREE 1.07 ng/dL (0.89-1.76)
[2023-10-09 09:57] LABS: THYROID STIMULATING HORMONE 1.47 uIU/mL (0.55-4.78)
[2023-10-09 10:04] LABS: PHENYTOIN < 2.0 ug/mL (10-20)
[2023-10-09 11:03] LABS: FERRITIN 22 ng/mL (10-291); FOLIC ACID (FOLATE) SERUM 11.17 ng/mL (>5.38)
[2023-10-09 11:04] LABS: VITAMIN B12 SERUM 311 pg/mL (211-911)
[2023-10-09 12:00] VITALS: BP 114/78; PULSE 79; RESP 18; TEMP 98.6
[2023-10-09] MEDS: PANTOPRAZOLE SODIUM 40 MG/VIAL IV SCH (14:03)
[2023-10-09] MEDS: SODIUM CHLORIDE 0.9% 1,000 ML IV SCH (14:04)
[2023-10-09 14:29] VITALS: BP 118/60; PULSE 80; RESP 16; TEMP 97.9
[2023-10-09 14:31] LABS: *AMPHETAMINES SCREEN URINE NEGATIVE (NEGATIVE); *BARBITURATES SCREEN URINE NEGATIVE (NEGATIVE); *BENZODIAZEPINES SCREEN URINE NEGATIVE (NEGATIVE); *COCAINE SCREEN URINE NEGATIVE (NEGATIVE); METHADONE URINE SCREEN NEGATIVE (NEGATIVE); OPIATES URINE SCREEN NEGATIVE (NEGATIVE); PHENCYCLIDINE URINE SCREEN NEGATIVE (NEGATIVE)
[2023-10-09 14:32] LABS: CANNABINOID URINE SCREEN PRESUMPTIVE POSITIVE (NEGATIVE); ECSTASY MDMA SCREEN URINE NEGATIVE (NEGATIVE)
[2023-10-09 16:00] VITALS: BP 131/75; PULSE 87; RESP 16; TEMP 97.3
[2023-10-09] MEDS: ACETAMINOPHEN 325MG TABLET PO PRN (17:56)
[2023-10-09] MEDS: POTASSIUM PHOSPHATE 15 MMOL in DEXT 5% WATER 245 ML IV NR (17:56)
[2023-10-09] MEDS: LEVETIRACETAM 500MG PREMIX 100 ML IV SCH (21:11)
[2023-10-10 04:00] VITALS: BP 128/68; PULSE 74; RESP 18; TEMP 97.5
[2023-10-10 06:25] LABS: CHLORIDE 108 mEq/L (98-107); POTASSIUM 3.2 mEq/L (3.5-5.1); SODIUM 139 mEq/L (136-145)
[2023-10-10 06:26] LABS: CARBON DIOXIDE 23 mEq/L (21-32)
[2023-10-10 06:31] LABS: CREATININE 0.7 mg/dL (0.6-1.0); GLUCOSE 84 mg/dL (70-105)
[2023-10-10 06:33] LABS: CREATINE KINASE 219 IU/L (34-145); PHOSPHORUS 3.4 mg/dL (2.5-4.9)
[2023-10-10 06:53] LABS: UREA NITROGEN BLOOD < 5 mg/dL (9-23)
[2023-10-10 06:54] LABS: HEMATOCRIT 34.9 % (36.0-48.0); HEMOGLOBIN 11.8 g/dL (12.0-16.0); MEAN CORPUSCULAR HEMOGLOBIN 27.8 pg (28.0-32.0); MEAN CORPUSCULAR HGB CONC 33.7 g/dL (31.0-37.0); MEAN CORPUSCULAR VOLUME 82.4 fL (81.0-99.0); PLATELET 215 x1000/uL (130-400); RED BLOOD CELL COUNT 4.23 mill/uL (4.2-5.4); RED CELL DISTRIBUTION WIDTH 14.8 % (11.6-14.6); WHITE BLOOD COUNT 6.1 x1000/uL (4.5-11.0)
[2023-10-10 08:00] VITALS: BP 110/63; PULSE 77; RESP 20; TEMP 98.1
[2023-10-10] MEDS: POTASSIUM CHLORIDE 20MEQ TABLET SR PO NR (09:32)
[2023-10-10] MEDS ORDERED: PHENYTOIN SODIUM EXTENDED 100MG CAPSULE PO NR (11:00)
[2023-10-10 12:27] VITALS: BP 110/63; PULSE 77; TEMP 97.8; O2SAT 100
[2023-10-11] MEDS ORDERED: FAMOTIDINE 20MG/2ML VIAL IV SCH (09:00)
== END 2023-10-10 13:07 | disposition home or self-care (01) | DRG 53 ==
LOC: ER 05:05 → 7EST 06:35
PROVIDERS: ADMIT Internal Medicine; ATTEND Internal Medicine
DX: G40.901 Epilepsy, unspecified, not intractable, with status epilepticus (principal); G92.8 Other toxic encephalopathy; E87.20 Acidosis, unspecified; M62.82 Rhabdomyolysis; E83.39 Other disorders of phosphorus metabolism; E78.2 Mixed hyperlipidemia; D72.829 Elevated white blood cell count, unspecified; E83.42 Hypomagnesemia; F10.10 Alcohol abuse, uncomplicated; Z91.148 Patient's other noncompliance with medication regimen for other reason; Z79.899 Other long term (current) drug therapy
CPT/HCPCS: 36415; 80048; 80053; 80061; 80185; 80305; 80307; 80320; 80329; 82542; 82550; 82607; 82728; 82746; 82962; 83540; 83550; 83605; 83735; 84100; 84439; 84443; 84703; 85025; 85027; 93970; 99291; C9113; J1165; J1953; J2060; J3411; J3475; J3490; J7030; J7050; J7060; J7070; G0480

== ENCOUNTER 2023-11-26 15:12 | Inpatient (IN) | payer SELFPAY ==
[~2023-11-26] VITALS: Ht 175.3 cm; Wt 103.2 kg
[2023-11-26] MEDS: TETANUS, DIPHTHERIA, PERTUSSIS VAC/PF 0.5ML (>10YR OLD) IM ONE (15:45)
[2023-11-26] MEDS: MIDAZOLAM HCL 2 MG/2 ML VIAL IM ONE ×2 (16:04→20:32)
[2023-11-26] MEDS: LEVETIRACETAM 500MG PREMIX 100 ML IV ONE ×2 (16:32→20:56)
[2023-11-26] MEDS: LACTATED RINGERS 1,000 ML IV SCH (16:36)
[2023-11-26 17:19] LABS: HEMATOCRIT. 42.3 % (36.0-48.0); HEMOGLOBIN. 13.3 g/dL (12.0-16.0); MEAN CORPUSCULAR HEMOGLOBIN 26.8 pg (28.0-32.0); MEAN CORPUSCULAR HGB CONC 31.5 g/dL (31.0-37.0); MEAN CORPUSCULAR VOLUME 85.2 fL (81.0-99.0); PLATELET 259 x1000/uL (130-400); RED BLOOD CELL COUNT 4.96 mill/uL (4.2-5.4); RED CELL DISTRIBUTION WIDTH 15.1 % (11.6-14.6); WHITE BLOOD COUNT 22.4 x1000/uL (4.5-11.0)
[2023-11-26 17:21] LABS: DIFFERENTIAL COMMENT 1
[2023-11-26 17:26] LABS: HCG SCREEN NEGATIVE
[2023-11-26 17:30] LABS: CARBON DIOXIDE 18 mEq/L (21-32); CHLORIDE 104 mEq/L (98-107); POTASSIUM 3.3 mEq/L (3.5-5.1); SODIUM 138 mEq/L (136-145)
[2023-11-26 17:31] LABS: CALCIUM 8.7 mg/dL (8.7-10.4)
[2023-11-26 17:35] LABS: CREATININE 0.9 mg/dL (0.6-1.0); GLUCOSE 102 mg/dL (70-105)
[2023-11-26 17:36] LABS: UREA NITROGEN BLOOD 9 mg/dL (9-23)
[2023-11-26 17:37] LABS: ALANINE AMINOTRANSFERASE 26 IU/L (10-49); ALBUMIN 3.9 g/dL (3.2-4.8); ASPARTATE AMINOTRANSFERASE 31 IU/L (<34)
[2023-11-26 17:38] LABS: BILIRUBIN TOTAL 0.6 mg/dL (0.1-1.0); CREATINE KINASE 330 IU/L (34-145); PROTEIN TOTAL 7.1 g/dL (6.0-8.3)
[2023-11-26 17:55] LABS: PLATELET ESTIMATE NORMAL
[2023-11-26] MEDS ORDERED: CLONIDINE 0.1MG TABLET PO PRN (19:00)
[2023-11-26] MEDS ORDERED: ONDANSETRON HCL 4MG/2ML INJ IV PRN (19:00)
[2023-11-26] MEDS ORDERED: ACETAMINOPHEN 650MG SUPP PR PRN ×2 (19:00)
[2023-11-26] MEDS ORDERED: ACETAMINOPHEN 325MG TABLET PO PRN ×2 (19:00)
[2023-11-26] MEDS ORDERED: DOCUSATE SODIUM 100MG CAPSULE PO PRN (19:00)
[2023-11-26] MEDS ORDERED: LORAZEPAM 2MG/ML INJ IV PRN ×2 (19:00)
[2023-11-26] MEDS ORDERED: GUAIFENESIN 200MG/10ML SUGAR FREE UDC PO PRN (19:00)
[2023-11-26] MEDS ORDERED: IPRATROPIUM/ALBUTEROL 0.5-3(2.5)MG/3ML NEB HHN PRN (19:00)
[2023-11-26] MEDS ORDERED: MAGNESIUM/ALUMINUM HYDROXIDE/SIMETHICONE 30ML UDC PO PRN (19:00)
[2023-11-26] MEDS: LORAZEPAM 2MG/ML INJ IV STA (20:30)
[2023-11-26 20:50] LABS: PHOSPHORUS 2.1 mg/dL (2.5-4.9)
[2023-11-26 20:52] LABS: ETHANOL BLOOD < 10 mg/dL (<10)
[2023-11-26] MEDS ORDERED: LEVETIRACETAM 500MG PREMIX 100 ML IV SCH (21:00)
[2023-11-26 23:52] VITALS: BP 125/87; PULSE 103; RESP 23; TEMP 98.4
[2023-11-27] MEDS ORDERED: DEXTROSE 50% WATER 50ML SYRINGE IV PRN (01:15)
[2023-11-27] MEDS: INSULIN LISPRO 100 UNITS/ML SUBCUT SCH (01:15)
[2023-11-27] MEDS: BLOOD SUGAR DIAGNOSTIC STRIP TEST SCH (01:21)
[2023-11-27] MEDS: CEFTRIAXONE 1GM/50ML 50 ML IV SCH (02:00)
[2023-11-27 02:23] LABS: CLARITY URINE TURBID (CLEAR); COLOR URINE YELLOW (YELLOW); GLUCOSE URINE NEGATIVE (NEGATIVE); KETONES URINE 2+ (NEGATIVE); LEUKOCYTE ESTERASE URINE NEGATIVE (NEGATIVE); NITRITE URINE NEGATIVE (NEGATIVE); OCCULT BLOOD URINE 1+ (NEGATIVE); PROTEIN URINE 1+ (NEGATIVE); SPECIFIC GRAVITY URINE 1.023 (1.005-1.030); UROBILINOGEN URINE 0.2 E.U./dL (0.2-1.0)
[2023-11-27 02:43] LABS: *AMPHETAMINES SCREEN URINE NEGATIVE (NEGATIVE); *BARBITURATES SCREEN URINE NEGATIVE (NEGATIVE); *COCAINE SCREEN URINE NEGATIVE (NEGATIVE); ECSTASY MDMA SCREEN URINE NEGATIVE (NEGATIVE); METHADONE URINE SCREEN NEGATIVE (NEGATIVE); OPIATES URINE SCREEN NEGATIVE (NEGATIVE); PHENCYCLIDINE URINE SCREEN NEGATIVE (NEGATIVE)
[2023-11-27] MEDS: AZITHROMYCIN 500MG/250ML 250 ML IV SCH (03:07)
[2023-11-27] MEDS: FOLIC ACID 1 MG, THIAMINE HCL 100 MG, MVI, ADULT NO.1 10 ML in DEXTROSE 5% WATER 1,000 ML IV NR (03:17)
[2023-11-27 04:15] VITALS: BP 125/83; PULSE 113; RESP 23; TEMP 98.7
[2023-11-27] MEDS: POTASSIUM PHOSPHATE 20 MMOL in DEXT 5% WATER 243.3333 ML IV NR (05:01)
[2023-11-27 06:52] LABS: CARBON DIOXIDE 21 mEq/L (21-32); CHLORIDE 103 mEq/L (98-107); POTASSIUM 3.4 mEq/L (3.5-5.1); SODIUM 136 mEq/L (136-145)
[2023-11-27 06:53] LABS: CALCIUM 8.7 mg/dL (8.7-10.4)
[2023-11-27 06:55] LABS: CREATINE KINASE MB FRACTION 3.4 ng/mL (0.5-3.6)
[2023-11-27 06:56] LABS: TROPONIN I HIGH SENSITIVITY 16 ng/L (3.0-34)
[2023-11-27 06:58] LABS: CREATINE KINASE 740 IU/L (34-145); CREATININE 0.8 mg/dL (0.6-1.0); GLUCOSE 109 mg/dL (70-105); UREA NITROGEN BLOOD 7 mg/dL (9-23)
[2023-11-27 07:00] LABS: PHOSPHORUS 2.7 mg/dL (2.5-4.9)
[2023-11-27 07:05] LABS: BASOPHILS % 0.1 % (0.0-2.0); EOSINOPHILS % 0.1 % (0.0-5.0); HEMATOCRIT. 36.8 % (36.0-48.0); HEMOGLOBIN. 11.8 g/dL (12.0-16.0); LYMPHOCYTES % 11.3 % (20.0-50.0); MEAN CORPUSCULAR HEMOGLOBIN 26.3 pg (28.0-32.0); MEAN CORPUSCULAR HGB CONC 32.1 g/dL (31.0-37.0); MEAN CORPUSCULAR VOLUME 82.1 fL (81.0-99.0); MEAN PLATELET VOLUME 9.2 fl (7.4-10.4); MONOCYTES % 5.7 % (2.0-8.0); NEUTROPHILS % 82.8 % (40.0-76.0); PLATELET 238 x1000/uL (130-400); RED BLOOD CELL COUNT 4.49 mill/uL (4.2-5.4); RED CELL DISTRIBUTION WIDTH 14.8 % (11.6-14.6); WHITE BLOOD COUNT 14.9 x1000/uL (4.5-11.0)
[2023-11-27] MEDS ORDERED: POTASSIUM CHLORIDE 40 MEQ in DEXT 5% WATER 230 ML IV ONE (07:45)
[2023-11-27] MEDS ORDERED: LORAZEPAM 2MG/ML INJ IV PRN (08:00)
[2023-11-27] MEDS ORDERED: LIDOCAINE HCL 1% 10 MG/ML 10ML VIAL ONE (08:16)
[2023-11-27] MEDS ORDERED: LACTATED RINGERS 1,000 ML IV ONE (08:30)
[2023-11-27] MEDS: KCL 20MEQ/100ML X 2 FOR TOTAL KCL 40MEQ/200ML IV SCH (08:32)
[2023-11-27] MEDS: PANTOPRAZOLE SODIUM 40 MG/VIAL IV SCH (08:32)
[2023-11-27] MEDS: LEVETIRACETAM 500MG PREMIX 100 ML IV SCH (08:32)
[2023-11-27] MEDS: ENOXAPARIN 30MG/0.3ML SYR SUBCUT SCH (08:33)
[2023-11-27 09:25] VITALS: BP 114/83; PULSE 93; RESP 19
[2023-11-27 09:54] LABS: AMORPHOUS SEDIMENT URINE 2+ /lpf; SQUAMOUS EPITHELIAL CELL URINE FEW /lpf (RARE/1+)
[2023-11-27 09:56] LABS: BACTERIA URINE TRACE; RBC URINE NONE SEEN /hpf (0-2); WBC URINE NONE SEEN /hpf (0-2)
[2023-11-27] MEDS: POTASSIUM CHLORIDE 20MEQ TABLET SR PO NR (10:13)
[2023-11-27 13:39] VITALS: BP 114/83; PULSE 93; TEMP 98.7; O2SAT 97
[2023-11-27] MEDS ORDERED: CEFTRIAXONE 1GM/50ML 50 ML IV SCH (20:00)
[2023-11-27] MEDS ORDERED: AZITHROMYCIN 500MG/250ML 250 ML IV SCH (21:00)
== END 2023-11-27 15:00 | disposition home or self-care (01) | DRG 720 ==
LOC: ER 15:12 → 3WST 18:17 → EDBEDREQ 18:22
PROVIDERS: ADMIT Internal Medicine; ATTEND Internal Medicine
PROC: 02HV33Z Insertion of Infusion Device into Superior Vena Cava, Percutaneous Approach (ICD-10-PCS; principal; 2023-11-27)
PROC: B548ZZA Ultrasonography of Superior Vena Cava, Guidance (ICD-10-PCS; 2023-11-27)
DX: A41.9 Sepsis, unspecified organism (principal); G92.8 Other toxic encephalopathy; M62.82 Rhabdomyolysis; F10.239 Alcohol dependence with withdrawal, unspecified; G40.909 Epilepsy, unspecified, not intractable, without status epilepticus; E87.6 Hypokalemia; R91.8 Other nonspecific abnormal finding of lung field; Z91.148 Patient's other noncompliance with medication regimen for other reason; W18.30XA Fall on same level, unspecified, initial encounter; Y93.89 Activity, other specified; Y92.89 Other specified places as the place of occurrence of the external cause; Y99.8 Other external cause status
CPT/HCPCS: 36415; 36573; 71045; 80048; 80053; 80305; 80320; 81003; 82550; 82553; 82962; 83036; 83605; 83735; 84100; 84145; 84484; 84703; 85025; 90715; 93005; 99291; C1725; C1893; C9113; J0456; J0696; J1650; J1953; J2250; J3411; J3480; J3490; J7060; J7070; G0480

== ENCOUNTER 2024-03-04 00:24 | Emergency (ER) | payer SELFPAY ==
[~2024-03-04] VITALS: Ht 180.3 cm; Wt 90.0 kg
[~2024-03-04 00:24] MED LIST changes: -IBUP-2028 MT; -LEVE1000 MT; -LEVE1000 PO; -OMEP40CA20 MT; -ONDA4TAB5 MT; -ONDA4TAB50 MT; -PHEN100C4 PO
[2024-03-04 00:32] VITALS: O2SAT 99
[2024-03-04 01:15] VITALS: TEMP 36.83628
[2024-03-04] MEDS: SODIUM CHLORIDE 0.9% 1,000 ML IV ONE (02:40)
[2024-03-04] MEDS: LEVETIRACETAM 1000MG PREMIX 100 ML IV ONE (02:40)
[2024-03-04 02:55] LABS: CHLORIDE 105 mEq/L (98-107); POTASSIUM 3.8 mEq/L (3.5-5.1); SODIUM 135 mEq/L (136-145)
[2024-03-04 02:56] LABS: CARBON DIOXIDE 26 mEq/L (21-32)
[2024-03-04 02:57] LABS: CALCIUM 9.1 mg/dL (8.7-10.4)
[2024-03-04 03:01] LABS: BASOPHILS % 0.4 % (0.0-2.0); CREATININE 0.8 mg/dL (0.6-1.0); EOSINOPHILS % 0.9 % (0.0-5.0); GLUCOSE 95 mg/dL (70-105); HEMOGLOBIN. 13.1 g/dL (12.0-16.0); LYMPHOCYTES % 21.5 % (20.0-50.0); MEAN CORPUSCULAR HEMOGLOBIN 27.1 pg (28.0-32.0); MEAN CORPUSCULAR HGB CONC 31.9 g/dL (31.0-37.0); MEAN CORPUSCULAR VOLUME 84.9 fL (81.0-99.0); MONOCYTES % 8.5 % (2.0-8.0); NEUTROPHILS % 68.7 % (40.0-76.0); PLATELET 211 x1000/uL (130-400); RED BLOOD CELL COUNT 4.83 mill/uL (4.2-5.4); RED CELL DISTRIBUTION WIDTH 15.2 % (11.6-14.6); WHITE BLOOD COUNT 6.6 x1000/uL (4.5-11.0)
[2024-03-04 03:02] LABS: UREA NITROGEN BLOOD 16 mg/dL (9-23)
[2024-03-04 04:10] VITALS: BP 140/88; PULSE 78; RESP 22; O2SAT 98
== END 2024-03-04 04:18 | disposition home or self-care (01) ==
LOC: ER 00:27
DX: R56.9 Unspecified convulsions (principal); R41.82 Altered mental status, unspecified
CPT/HCPCS: 80048; 82962; 85025; 36415; 96365; 99284; J1953; J7030; Z7610 ×2

== ENCOUNTER 2024-03-22 23:05 | Emergency (ER) | payer SELFPAY ==
[~2024-03-22] VITALS: Ht 172.7 cm; Wt 73.0 kg
[2024-03-22 23:06] VITALS: O2SAT 100
[2024-03-22 23:12] VITALS: BP 120/73; PULSE 76; RESP 20; TEMP 98; O2SAT 100
[2024-03-22] MEDS: LEVETIRACETAM 1000MG PREMIX 100 ML IV ONE (23:35)
[2024-03-22] MEDS: LORAZEPAM 2MG/ML INJ IV ONE (23:35)
[2024-03-22 23:57] LABS: BASOPHILS % 1.4 % (0.0-2.0); EOSINOPHILS % 2.3 % (0.0-5.0); HEMATOCRIT. 36.7 % (36.0-48.0); HEMOGLOBIN. 12.3 g/dL (12.0-16.0); LYMPHOCYTES % 49.6 % (20.0-50.0); MEAN CORPUSCULAR HEMOGLOBIN 28.2 pg (28.0-32.0); MEAN CORPUSCULAR HGB CONC 33.4 g/dL (31.0-37.0); MEAN CORPUSCULAR VOLUME 84.5 fL (81.0-99.0); MEAN PLATELET VOLUME 9.3 fl (7.4-10.4); MONOCYTES % 9.3 % (2.0-8.0); NEUTROPHILS % 37.4 % (40.0-76.0); PLATELET 250 x1000/uL (130-400); RED BLOOD CELL COUNT 4.34 mill/uL (4.2-5.4); RED CELL DISTRIBUTION WIDTH 14.5 % (11.6-14.6); WHITE BLOOD COUNT 5.2 x1000/uL (4.5-11.0)
[2024-03-23 00:06] LABS: CHLORIDE 107 mEq/L (98-107); POTASSIUM 3.9 mEq/L (3.5-5.1); SODIUM 139 mEq/L (136-145)
[2024-03-23 00:07] LABS: CARBON DIOXIDE 27 mEq/L (21-32)
[2024-03-23 00:12] LABS: CREATININE 0.9 mg/dL (0.6-1.0); GLUCOSE 85 mg/dL (70-105); HCG SCREEN NEGATIVE
[2024-03-23 00:13] LABS: UREA NITROGEN BLOOD 14 mg/dL (9-23)
[2024-03-23] MEDS ORDERED: LEVE1000 MT (01:49)
== END 2024-03-23 01:56 | disposition home or self-care (01) ==
LOC: ER 23:05
DX: G40.909 Epilepsy, unspecified, not intractable, without status epilepticus (principal)
CPT/HCPCS: 80048; 84703; 83735; 85025; 36415; 96365; 96375; 99284; J1953; J2060; Z7610 ×2

== ENCOUNTER 2024-04-11 05:51 | Emergency (ER) | payer SELFPAY ==
[~2024-04-11] VITALS: Ht 175.3 cm; Wt 90.0 kg
[~2024-04-11 05:51] MED LIST changes: +LEVE1000 MT
[2024-04-11 06:03] VITALS: O2SAT 100
[2024-04-11 06:20] VITALS: TEMP 36.72516
[2024-04-11 07:39] LABS: BASOPHILS % 0.7 % (0.0-2.0); DIFFERENTIAL COMMENT 0; EOSINOPHILS % 2.6 % (0.0-5.0); HEMATOCRIT. 37.5 % (36.0-48.0); HEMOGLOBIN. 11.5 g/dL (12.0-16.0); LYMPHOCYTES % 37.4 % (20.0-50.0); MEAN CORPUSCULAR HEMOGLOBIN 27.5 pg (28.0-32.0); MEAN CORPUSCULAR HGB CONC 30.6 g/dL (31.0-37.0); MEAN CORPUSCULAR VOLUME 89.9 fL (81.0-99.0); MEAN PLATELET VOLUME 8.9 fl (7.4-10.4); NEUTROPHILS % 48.3 % (40.0-76.0); PLATELET 167 x1000/uL (130-400); RED BLOOD CELL COUNT 4.17 mill/uL (4.2-5.4); RED CELL DISTRIBUTION WIDTH 15.4 % (11.6-14.6); WHITE BLOOD COUNT 2.6 x1000/uL (4.5-11.0)
[2024-04-11 07:50] LABS: CHLORIDE 111 mEq/L (98-107); POTASSIUM 5.2 mEq/L (3.5-5.1); SODIUM 135 mEq/L (136-145)
[2024-04-11 07:51] LABS: CARBON DIOXIDE 17 mEq/L (21-32)
[2024-04-11] MEDS: ACETAMINOPHEN 1000MG/100ML 100 ML IV ONE (07:53)
[2024-04-11 07:56] LABS: CREATININE 0.8 mg/dL (0.6-1.0); GLUCOSE 63 mg/dL (70-105); UREA NITROGEN BLOOD 8 mg/dL (9-23)
[2024-04-11 08:16] LABS: HCG SCREEN NEGATIVE
[2024-04-11 09:40] VITALS: BP 102/66; PULSE 79; RESP 17; O2SAT 100
== END 2024-04-11 09:41 | disposition home or self-care (01) ==
LOC: ER 05:51
DX: G40.909 Epilepsy, unspecified, not intractable, without status epilepticus (principal); I49.9 Cardiac arrhythmia, unspecified; Z91.148 Patient's other noncompliance with medication regimen for other reason
CPT/HCPCS: 80048; 84703; 85025; 36415; 93005; 96365; 99284; Z7610; J0131

== ENCOUNTER 2024-04-11 22:38 | Emergency (ER) | payer SELFPAY ==
[~2024-04-11] VITALS: Ht 180.3 cm; Wt 91.0 kg
[2024-04-11 22:40] VITALS: TEMP 98.3; O2SAT 97
[2024-04-11 23:34] LABS: BASOPHILS % 0.9 % (0.0-2.0); EOSINOPHILS % 1.6 % (0.0-5.0); HEMATOCRIT. 44.7 % (36.0-48.0); HEMOGLOBIN. 14.3 g/dL (12.0-16.0); LYMPHOCYTES % 33.9 % (20.0-50.0); MEAN CORPUSCULAR HEMOGLOBIN 27.7 pg (28.0-32.0); MEAN CORPUSCULAR VOLUME 86.7 fL (81.0-99.0); MEAN PLATELET VOLUME 8.8 fl (7.4-10.4); MONOCYTES % 10.2 % (2.0-8.0); NEUTROPHILS % 53.4 % (40.0-76.0); PLATELET 251 x1000/uL (130-400); RED BLOOD CELL COUNT 5.16 mill/uL (4.2-5.4); RED CELL DISTRIBUTION WIDTH 14.8 % (11.6-14.6); WHITE BLOOD COUNT 4.1 x1000/uL (4.5-11.0)
[2024-04-11 23:41] LABS: CHLORIDE 109 mEq/L (98-107); POTASSIUM 3.4 mEq/L (3.5-5.1); SODIUM 140 mEq/L (136-145)
[2024-04-11 23:42] LABS: CARBON DIOXIDE 23 mEq/L (21-32)
[2024-04-11 23:43] LABS: CALCIUM 9.3 mg/dL (8.7-10.4)
[2024-04-11 23:47] LABS: CREATININE 0.9 mg/dL (0.6-1.0); GLUCOSE 84 mg/dL (70-105); UREA NITROGEN BLOOD 9 mg/dL (9-23)
[2024-04-11 23:59] LABS: ETHANOL BLOOD < 10 mg/dL (<10); VALPROIC ACID < 3.0 ug/mL (50-100)
[2024-04-12] MEDS ORDERED: LEVETIRACETAM 500MG TABLET PO ONE
[2024-04-12 00:02] VITALS: BP 21/88; PULSE 85; RESP 14; O2SAT 97
[2024-04-12 00:04] LABS: PHENYTOIN < 2.0 ug/mL (10-20)
[2024-04-12 00:28] LABS: HCG SCREEN NEGATIVE
== END 2024-04-12 | disposition home or self-care (01) ==
LOC: ER 22:38
DX: G40.909 Epilepsy, unspecified, not intractable, without status epilepticus (principal)
CPT/HCPCS: 36415; 80048; 80165; 80185; 80320; 84703; 85025; 99283; G0480

== ENCOUNTER 2024-05-17 06:44 | Emergency (ER) | payer SELFPAY ==
[~2024-05-17] VITALS: Ht 172.7 cm; Wt 87.0 kg
[2024-05-17 06:48] VITALS: O2SAT 97
[2024-05-17] MEDS ORDERED: LACTATED RINGERS 1,000 ML IV SCH (07:00)
[2024-05-17] MEDS ORDERED: LEVETIRACETAM 500MG PREMIX 100 ML IV ONE ×2 (07:00)
[2024-05-17 07:52] LABS: BASOPHILS % 0.6 % (0.0-2.0); EOSINOPHILS % 1.9 % (0.0-5.0); HEMOGLOBIN. 13.2 g/dL (12.0-16.0); MEAN CORPUSCULAR HEMOGLOBIN 27.4 pg (28.0-32.0); MEAN CORPUSCULAR HGB CONC 31.6 g/dL (31.0-37.0); MEAN CORPUSCULAR VOLUME 86.9 fL (81.0-99.0); MEAN PLATELET VOLUME 9.6 fl (7.4-10.4); MONOCYTES % 10.5 % (2.0-8.0); PLATELET 192 x1000/uL (130-400); RED BLOOD CELL COUNT 4.83 mill/uL (4.2-5.4); RED CELL DISTRIBUTION WIDTH 15.2 % (11.6-14.6); WHITE BLOOD COUNT 3.5 x1000/uL (4.5-11.0)
[2024-05-17 08:01] LABS: CHLORIDE 109 mEq/L (98-107); POTASSIUM 4.5 mEq/L (3.5-5.1); SODIUM 138 mEq/L (136-145)
[2024-05-17 08:02] LABS: CALCIUM 8.9 mg/dL (8.7-10.4); CARBON DIOXIDE 19 mEq/L (21-32)
[2024-05-17 08:06] LABS: HCG SCREEN NEGATIVE
[2024-05-17 08:07] LABS: CREATININE 0.9 mg/dL (0.6-1.0); GLUCOSE 83 mg/dL (70-105); UREA NITROGEN BLOOD 6 mg/dL (9-23)
[2024-05-17 08:09] LABS: ALANINE AMINOTRANSFERASE 17 IU/L (10-49); ALBUMIN 3.9 g/dL (3.2-4.8); ASPARTATE AMINOTRANSFERASE 26 IU/L (<34); BILIRUBIN TOTAL 0.6 mg/dL (0.1-1.0)
[2024-05-17] MEDS: LEVETIRACETAM 500MG TABLET PO ONE (09:26)
[2024-05-17 10:00] VITALS: BP 107/71; PULSE 86; RESP 13; TEMP 36.44736; O2SAT 99
== END 2024-05-17 09:59 | disposition home or self-care (01) ==
LOC: ER 06:44
DX: R56.9 Unspecified convulsions (principal)
CPT/HCPCS: 36415; 80053; 84703; 85025; 99283

== ENCOUNTER 2024-08-28 04:18 | Emergency (ER) | payer SELFPAY ==
[~2024-08-28] VITALS: Ht 172.7 cm; Wt 101.0 kg
[2024-08-28 04:20] VITALS: TEMP 36.6; O2SAT 96
[2024-08-28] MEDS: LEVETIRACETAM 1000MG PREMIX 100 ML IV ONE (06:14)
[2024-08-28 06:34] LABS: BASOPHILS % 0.3 % (0.0-2.0); EOSINOPHILS % 0.3 % (0.0-5.0); HEMOGLOBIN. 12.8 g/dL (12.0-16.0); LYMPHOCYTES % 11.1 % (20.0-50.0); MEAN CORPUSCULAR HEMOGLOBIN 26.9 pg (28.0-32.0); MEAN CORPUSCULAR HGB CONC 31.9 g/dL (31.0-37.0); MEAN CORPUSCULAR VOLUME 84.4 fL (81.0-99.0); MEAN PLATELET VOLUME 9.8 fl (7.4-10.4); MONOCYTES % 7.1 % (2.0-8.0); NEUTROPHILS % 81.2 % (40.0-76.0); PLATELET 270 x1000/uL (130-400); RED BLOOD CELL COUNT 4.75 mill/uL (4.2-5.4); RED CELL DISTRIBUTION WIDTH 14.7 % (11.6-14.6); WHITE BLOOD COUNT 8.3 x1000/uL (4.5-11.0)
[2024-08-28 06:48] LABS: CHLORIDE 109 mEq/L (98-107); POTASSIUM 4.1 mEq/L (3.5-5.1); SODIUM 140 mEq/L (136-145)
[2024-08-28 06:49] LABS: CALCIUM 8.9 mg/dL (8.7-10.4); CARBON DIOXIDE 24 mEq/L (21-32)
[2024-08-28 06:54] LABS: CREATININE 0.9 mg/dL (0.6-1.0); GLUCOSE 63 mg/dL (70-105); UREA NITROGEN BLOOD 9 mg/dL (9-23)
[2024-08-28 07:00] VITALS: BP 115/77; PULSE 76; RESP 22; O2SAT 97
[2024-08-28 07:09] LABS: ETHANOL BLOOD < 10 mg/dL (<10); PHENYTOIN < 2.0 ug/mL (10-20); VALPROIC ACID < 3.0 ug/mL (50-100)
== END 2024-08-28 07:38 | disposition home or self-care (01) ==
LOC: ER 04:18
DX: G40.909 Epilepsy, unspecified, not intractable, without status epilepticus (principal); F10.90 Alcohol use, unspecified, uncomplicated; Y90.9 Presence of alcohol in blood, level not specified
CPT/HCPCS: 80048; 80320; 80185; 80165; 85025; 36415; 96365; 99284; J1953; 99285; G0480

== ENCOUNTER 2024-10-11 06:05 | Inpatient (IN) | payer SELFPAY ==
[~2024-10-11] VITALS: Ht 175.3 cm; Wt 100.7 kg
[2024-10-11] MEDS: ACETAMINOPHEN 325MG TABLET PO STA (06:08)
[2024-10-11 06:13] VITALS: O2SAT 98
[2024-10-11 07:29] LABS: CHLORIDE 109 mEq/L (98-107); POTASSIUM 3.7 mEq/L (3.5-5.1); SODIUM 139 mEq/L (136-145)
[2024-10-11 07:30] LABS: CARBON DIOXIDE 24 mEq/L (21-32)
[2024-10-11 07:31] LABS: BASOPHILS % 0.4 % (0.0-2.0); CALCIUM 8.9 mg/dL (8.7-10.4); EOSINOPHILS % 0.6 % (0.0-5.0); HEMATOCRIT. 41.1 % (36.0-48.0); HEMOGLOBIN. 13.4 g/dL (12.0-16.0); LYMPHOCYTES % 15.7 % (20.0-50.0); MEAN CORPUSCULAR HEMOGLOBIN 27.2 pg (28.0-32.0); MEAN CORPUSCULAR HGB CONC 32.5 g/dL (31.0-37.0); MEAN CORPUSCULAR VOLUME 83.6 fL (81.0-99.0); MEAN PLATELET VOLUME 9.1 fl (7.4-10.4); MONOCYTES % 7.1 % (2.0-8.0); NEUTROPHILS % 76.2 % (40.0-76.0); PLATELET 232 x1000/uL (130-400); RED BLOOD CELL COUNT 4.92 mill/uL (4.2-5.4); RED CELL DISTRIBUTION WIDTH 14.8 % (11.6-14.6); WHITE BLOOD COUNT 3.9 x1000/uL (4.5-11.0)
[2024-10-11 07:35] LABS: GLUCOSE 85 mg/dL (70-105); UREA NITROGEN BLOOD 11 mg/dL (9-23)
[2024-10-11 07:36] LABS: ETHANOL BLOOD < 10 mg/dL (<10)
[2024-10-11] MEDS ORDERED: LEVETIRACETAM 1000MG PREMIX 100 ML IV ONE (09:15)
[2024-10-11] MEDS ORDERED: LORAZEPAM 2MG/ML INJ IM ONE (09:30)
[2024-10-11] MEDS: LORAZEPAM 2MG/ML UD SYRINGE IM NR (10:02)
[2024-10-11] MEDS: LEVETIRACETAM 1000MG PREMIX 100 ML IV ONE (10:07)
[2024-10-11] MEDS: LEVETIRACETAM 1000MG PREMIX 100 ML IV SCH (10:07)
[2024-10-11 11:00] VITALS: BP 126/84; PULSE 89; RESP 20; TEMP 36.6
[2024-10-11] MEDS ORDERED: ACETAMINOPHEN 325MG TABLET PO PRN (11:45)
[2024-10-11 12:00] VITALS: BP 126/84; PULSE 89; RESP 18; TEMP 36.6; O2SAT 96
[2024-10-11] MEDS ORDERED: IPRATROPIUM/ALBUTEROL 0.5-3(2.5)MG/3ML NEB HHN PRN (12:00)
[2024-10-11] MEDS ORDERED: LORAZEPAM 0.5MG TABLET PO PRN (12:00)
[2024-10-11] MEDS ORDERED: CLONIDINE 0.1MG TABLET PO PRN (12:00)
[2024-10-11] MEDS ORDERED: MAGNESIUM/ALUMINUM HYDROXIDE/SIMETHICONE 30ML UDC PO PRN (12:00)
[2024-10-11] MEDS ORDERED: ONDANSETRON HCL 4MG/2ML INJ IV PRN (12:00)
[2024-10-11] MEDS ORDERED: DOCUSATE SODIUM 100MG CAPSULE PO PRN (12:00)
[2024-10-11] MEDS: ACETAMINOPHEN 325MG TABLET PO PRN (15:47)
[2024-10-11 16:00] VITALS: BP 109/67; PULSE 97; RESP 18; TEMP 37.1; O2SAT 97
[2024-10-11] MEDS ORDERED: LORAZEPAM 2MG/ML UD SYRINGE IV PRN (16:45)
[2024-10-11] MEDS: LEVETIRACETAM 500MG TABLET PO NR (17:31)
[2024-10-11 17:36] LABS: CREATINE KINASE 298 IU/L (34-145)
[2024-10-11 17:41] LABS: HCG SCREEN NEGATIVE
[2024-10-11] MEDS: SODIUM CHLORIDE 0.9% 1,000 ML IV ONE (18:46)
[2024-10-11 20:00] VITALS: BP 101/59; PULSE 91; RESP 20; TEMP 36.2; O2SAT 97
[2024-10-11] MEDS ORDERED: LEVETIRACETAM 500MG PREMIX 100 ML IV SCH (21:00)
[2024-10-11] MEDS ORDERED: LEVETIRACETAM 500MG in NACL 100ML PREMIX IV SCH (21:00)
[2024-10-11 22:48] LABS: CLARITY URINE CLEAR (CLEAR); COLOR URINE ORANGE (YELLOW); GLUCOSE URINE NEGATIVE (NEGATIVE); KETONES URINE TRACE (NEGATIVE); LEUKOCYTE ESTERASE URINE 1+ (NEGATIVE); NITRITE URINE NEGATIVE (NEGATIVE); OCCULT BLOOD URINE 3+ (NEGATIVE); PH URINE 6.5 (4.5-8.0); PROTEIN URINE 1+ (NEGATIVE); SPECIFIC GRAVITY URINE 1.018 (1.005-1.030)
[2024-10-11] MEDS: ENOXAPARIN 30MG/0.3ML SYR SUBCUT SCH (22:51)
[2024-10-11 22:55] LABS: *AMPHETAMINES SCREEN URINE NEGATIVE (NEGATIVE); *BARBITURATES SCREEN URINE NEGATIVE (NEGATIVE); *BENZODIAZEPINES SCREEN URINE NEGATIVE (NEGATIVE); *COCAINE SCREEN URINE NEGATIVE (NEGATIVE); CANNABINOID URINE SCREEN PRESUMPTIVE POSITIVE (NEGATIVE); ECSTASY MDMA SCREEN URINE NEGATIVE (NEGATIVE); METHADONE URINE SCREEN NEGATIVE (NEGATIVE); OPIATES URINE SCREEN NEGATIVE (NEGATIVE); PHENCYCLIDINE URINE SCREEN NEGATIVE (NEGATIVE)
[2024-10-11 23:12] LABS: BACTERIA URINE 1+; SQUAMOUS EPITHELIAL CELL URINE 1+ /lpf (RARE/1+)
[2024-10-12] VITALS: BP 100/65; PULSE 77; RESP 20; TEMP 36.2; O2SAT 97
[2024-10-12 07:52] LABS: BASOPHILS % 0.5 % (0.0-2.0); EOSINOPHILS % 3.2 % (0.0-5.0); HEMATOCRIT. 37.4 % (36.0-48.0); HEMOGLOBIN. 12.2 g/dL (12.0-16.0); LYMPHOCYTES % 28.5 % (20.0-50.0); MEAN CORPUSCULAR HEMOGLOBIN 27.1 pg (28.0-32.0); MEAN CORPUSCULAR HGB CONC 32.6 g/dL (31.0-37.0); MEAN CORPUSCULAR VOLUME 83.1 fL (81.0-99.0); MEAN PLATELET VOLUME 9.1 fl (7.4-10.4); MONOCYTES % 8.7 % (2.0-8.0); NEUTROPHILS % 59.1 % (40.0-76.0); PLATELET 224 x1000/uL (130-400); RED CELL DISTRIBUTION WIDTH 14.9 % (11.6-14.6); WHITE BLOOD COUNT 5.3 x1000/uL (4.5-11.0)
[2024-10-12 08:00] VITALS: BP 129/70; PULSE 78; RESP 18; TEMP 36.1; O2SAT 97
[2024-10-12 08:15] LABS: CHLORIDE 106 mEq/L (98-107); POTASSIUM 3.4 mEq/L (3.5-5.1); SODIUM 140 mEq/L (136-145)
[2024-10-12 08:16] LABS: CARBON DIOXIDE 24 mEq/L (21-32)
[2024-10-12 08:17] LABS: CALCIUM 8.9 mg/dL (8.7-10.4)
[2024-10-12 08:21] LABS: CREATININE 0.8 mg/dL (0.6-1.0); GLUCOSE 98 mg/dL (70-105)
[2024-10-12 08:22] LABS: UREA NITROGEN BLOOD 5 mg/dL (9-23)
[2024-10-12] MEDS: LEVETIRACETAM 500MG TABLET PO SCH (09:00)
== END 2024-10-12 08:25 | disposition left against medical advice (07) | DRG 720 ==
LOC: ER 06:05 → 6WST 08:22 → EDBEDREQ 08:28 → EDBEDREQTM 08:28 → ENRESERV 08:54
PROVIDERS: ADMIT Internal Medicine; ATTEND Internal Medicine
DX: A41.9 Sepsis, unspecified organism (principal); F12.90 Cannabis use, unspecified, uncomplicated; G40.909 Epilepsy, unspecified, not intractable, without status epilepticus; Z53.29 Procedure and treatment not carried out because of patient's decision for other reasons; F17.210 Nicotine dependence, cigarettes, uncomplicated; Z79.899 Other long term (current) drug therapy; Z91.148 Patient's other noncompliance with medication regimen for other reason
CPT/HCPCS: 36415; 71045; 80048; 80305; 80320; 81003; 82542; 82550; 84703; 85025; 99291; A4606; J1650; J1953; J2060; G0480

== ENCOUNTER 2024-12-29 16:17 | Emergency (ER) | payer SELFPAY ==
[~2024-12-29] VITALS: Ht 170.2 cm; Wt 85.0 kg
[2024-12-29 16:21] VITALS: O2SAT 99
[2024-12-29 17:03] LABS: BASOPHILS % 0.5 % (0.0-2.0); EOSINOPHILS % 2.1 % (0.0-5.0); HEMATOCRIT. 37.5 % (36.0-48.0); HEMOGLOBIN. 12.2 g/dL (12.0-16.0); LYMPHOCYTES % 17.6 % (20.0-50.0); MEAN PLATELET VOLUME 9.1 fl (7.4-10.4); MONOCYTES % 7.0 % (2.0-8.0); NEUTROPHILS % 72.8 % (40.0-76.0); PLATELET 232 x1000/uL (130-400); RED BLOOD CELL COUNT 4.47 mill/uL (4.2-5.4); RED CELL DISTRIBUTION WIDTH 14.8 % (11.6-14.6)
[2024-12-29 17:14] LABS: HCG SCREEN NEGATIVE
[2024-12-29 17:15] LABS: CREATININE 0.9 mg/dL (0.6-1.0); UREA NITROGEN BLOOD 7 mg/dL (9-23)
[2024-12-29] MEDS: LEVETIRACETAM 1000MG PREMIX 100 ML IV ONE (17:54)
[2024-12-29] MEDS: SODIUM CHLORIDE 0.9% 1,000 ML IV ONE (17:55)
[2024-12-29] MEDS: POTASSIUM CHLORIDE 20MEQ TABLET SR PO SCH (18:03)
[2024-12-29] MEDS: KETOROLAC 15MG/ML VIAL IV ONE (18:03)
[2024-12-29] MEDS ORDERED: LEVE750T4 MT (19:56)
[2024-12-29 20:55] VITALS: BP 110/61; PULSE 87; RESP 16; TEMP 37; O2SAT 98
== END 2024-12-29 21:07 | disposition home or self-care (01) ==
LOC: ER 16:17
DX: G40.909 Epilepsy, unspecified, not intractable, without status epilepticus (principal); Z79.899 Other long term (current) drug therapy
CPT/HCPCS: 80048; 82962; 84703; 85025; 36415; 96365; 96375; 99284; 82542; J1885; J7030; Z7610

== ENCOUNTER 2025-02-23 00:20 | Emergency (ER) | payer MEDICAID ==
[~2025-02-23] VITALS: Ht 167.6 cm; Wt 82.0 kg
[~2025-02-23 00:20] MED LIST changes: +LEVE750T4 MT
[2025-02-23 00:29] VITALS: O2SAT 98
[2025-02-23 01:09] VITALS: TEMP 36.7
[2025-02-23] MEDS ORDERED: SODIUM CHLORIDE 0.9% 1,000 ML IV ONE (01:45)
[2025-02-23] MEDS ORDERED: LEVETIRACETAM 500MG PREMIX 100 ML IV ONE (01:45)
[2025-02-23] MEDS: LEVETIRACETAM 500MG TABLET PO ONE (02:33)
[2025-02-23 03:23] VITALS: BP 128/66; PULSE 67; RESP 19; O2SAT 97
== END 2025-02-23 04:23 | disposition left against medical advice (07) ==
LOC: ER 00:20 → CMPBEDREQ 02-24 13:41
DX: G40.909 Epilepsy, unspecified, not intractable, without status epilepticus (principal); H53.149 Visual discomfort, unspecified; F12.90 Cannabis use, unspecified, uncomplicated
CPT/HCPCS: 99284; 82962; 93005; J1953; J7030

== ENCOUNTER 2025-03-09 04:12 | Emergency (ER) | payer MEDICAID ==
[~2025-03-09] VITALS: Ht 170.2 cm; Wt 100.0 kg
[2025-03-09 04:21] VITALS: O2SAT 98
[2025-03-09 04:45] VITALS: BP 90/65; PULSE 84; RESP 17; TEMP 36.6; O2SAT 99
[2025-03-09] MEDS: LEVETIRACETAM 1000MG PREMIX 100 ML IV ONE (04:55)
== END 2025-03-09 04:52 | disposition left against medical advice (07) ==
LOC: ER 04:12
DX: G40.909 Epilepsy, unspecified, not intractable, without status epilepticus (principal); F12.90 Cannabis use, unspecified, uncomplicated; Z91.148 Patient's other noncompliance with medication regimen for other reason; Z79.899 Other long term (current) drug therapy
CPT/HCPCS: 82962; 99283